=== PATIENT | male | born 1960 | race Caucasian/White ===

== ENCOUNTER 2020-03-04 14:57 | Outpatient (REF) | payer BC, SELFPAY | END 2020-03-04 14:58 | disposition home or self-care (01) | LOC: HO.LNP 14:57 | PROVIDERS: Visit Provider Internal Medicine | DX: R68.83 Chills (without fever) (principal); R23.2 Flushing; R07.89 Other chest pain; Z20.828 Contact with and (suspected) exposure to other viral communicable diseases | CPT/HCPCS: 87635 ==

== ENCOUNTER 2020-11-13 06:02 | Outpatient (REF) | payer BC, SELFPAY ==
[2020-11-13 06:50] LABS: MANUAL DIFF FLAG NO
[2020-11-13 07:04] LABS: Basophils Percent Auto 0.6 % (0-2); Eosinophils Absolute Auto 0.1 X10*3/uL (0.0-0.4); Eosinophils Percent Auto 2.2 % (0-4); Hematocrit 44.9 % (42-52); Hemoglobin 15.5 g/dl (14.0-18.0); Imm Gran Abs Auto 0.02 X10*3/uL (0.00-0.03); Imm Gran Pct Auto 0.3 % (0.0-0.4); Lymphocytes Absolute Auto 1.8 X10*3/uL (1.2-4.9); Lymphocytes Percent Auto 27.8 % (20-40); Mean Corpuscular HGB Conc 34.5 g/dl (31.0-36.0); Mean Corpuscular Hemoglobin 30.4 pg (27.0-33.0); Mean Platelet Volume 10.5 fL (9.4-12.4); Monocytes Absolute Auto 0.6 X10*3/uL (0.1-1.2); Monocytes Percent Auto 8.6 % (2-11); Neutrophils Absolute Auto 3.9 X10*3/uL (2.0-8.3); Neutrophils Percent Auto 60.5 % (45-73); Platelet Count 255 X10*3/uL (160-400); Red Cell Distribution Width 12.8 % (11.0-16.0); White Blood Count 6.4 X10*3/uL (4.8-10.8)
[2020-11-13 07:12] LABS: Alanine Aminotransferase 57 U/L (0-40); Albumin Level 4.3 g/dL (3.5-5.0); Alkaline Phosphatase 74 U/L (39-117); Anion Gap 13 (12-20); Aspartate Amino Transferase 30 U/L (5-37); Blood Urea Nitrogen 21 mg/dL (9-16); Calcium 9.4 mg/dL (8.4-10.2); Carbon Dioxide 25 mmol/L (22-29); Chloride 107 mmol/L (96-108); Cholesterol 150 mg/dL; Estimated Glomerular Filt Rate > 60; Glucose Fasting 85 mg/dL (60-99); HDL Cholesterol 43 mg/dL; LDL Cholesterol Calculated 96 mg/dl; Potassium 4.6 mmol/L (3.3-5.1); Sodium 140 mmol/L (135-145); Total Protein 6.8 g/dL (6.5-8.0); Triglycerides 57 mg/dL
[2020-11-13 07:34] LABS: Prostate Specific Antigen 1.75 ng/mL (<0.05-4.0)
[2020-11-13 08:56] LABS: Glucose Urine UA NEG (NEG); Leukocyte Esterase Urine NEG (NEG); Nitrite Urine NEG (NEG); Urine Blood NEG (NEG); Urine Ketones NEG (NEG); Urine Protein NEG (NEG-TRACE)
[2020-11-13 09:07] LABS: Appearance Urine CLEAR; Color Urine YELLOW
== END 2020-11-13 06:03 | disposition home or self-care (01) ==
LOC: HO.LAB 06:02
PROVIDERS: PCP Internal Medicine; Visit Provider Internal Medicine
DX: Z00.00 Encounter for general adult medical examination without abnormal findings (principal); Z12.5 Encounter for screening for malignant neoplasm of prostate
CPT/HCPCS: 36415; 80053; 80061; 81003; 84153; 85025

== ENCOUNTER → 2020-12-17 10:16 | Outpatient (BNVA) | payer BC, SELFPAY | PROVIDERS: PCP Internal Medicine; Visit Provider Orthopaedic Surgery ==

== ENCOUNTER 2021-07-14 05:57 | Outpatient (REF) | payer BC, SELFPAY ==
[2021-07-14 07:27] LABS: Appearance Urine CLEAR; Color Urine YELLOW; Glucose Urine UA NEG (NEG); Leukocyte Esterase Urine NEG (NEG); Nitrite Urine NEG (NEG); Specific Gravity - Urine 1.025 (1.005-1.025); Urine Blood NEG (NEG); Urine Ketones NEG (NEG); Urine Protein NEG (NEG-TRACE)
[2021-07-14 07:58] LABS: Anion Gap 12 (12-20); Blood Urea Nitrogen 17 mg/dL (9-16); Calcium 9.4 mg/dL (8.4-10.2); Carbon Dioxide 27 mmol/L (22-29); Chloride 107 mmol/L (96-108); Estimated Glomerular Filt Rate > 60; Glucose Random 86 mg/dL (60-115); Potassium 4.5 mmol/L (3.3-5.1); Sodium 141 mmol/L (135-145)
== END 2021-07-14 05:58 | disposition home or self-care (01) ==
LOC: HO.LAB 05:57
PROVIDERS: PCP Internal Medicine; Visit Provider Internal Medicine
DX: I10 Essential (primary) hypertension (principal); Z87.442 Personal history of urinary calculi
CPT/HCPCS: 36415; 80048; 81003

== ENCOUNTER 2021-07-30 14:06 | Outpatient (REF) | payer BC, SELFPAY ==
--- NOTE | ~2021-07-30 | US_ITS ---
EXAMINATION: US RETROPERITONEAL COMPLETE (RENAL) CLINICAL INFORMATION: Left flank pain, history of kidney stone. COMPARISON: Ultrasound abdomen complete 11/27/2018. US retroperitoneal limited (renal only) 12/22/2017. CT abdomen and pelvis without contrast 05/08/2016. TECHNIQUE: Real-time imaging of the kidneys and bladder. FINDINGS: RIGHT KIDNEY: 11.9 x 6.38 x 5.86 cm (SAG x AP x TRV). The kidney is normal in size, contour, and echogenicity. Renal cortical thickness is normal. No focal parenchymal lesions or hydronephrosis. Multiple nonobstructing calculi are noted largest measuring up to 4 mm in the interpolar region. LEFT KIDNEY: 12.4 x 5.8 x 6.14 cm (SAG x AP x TRV). The kidney is normal in size, contour, and echogenicity. Renal cortical thickness is normal. No renal calculi or hydronephrosis. Simple appearing cyst in the left renal interpolar region measuring 1.3 cm, which does not require follow-up. Additional cyst noted in the interpolar region measuring up to 1.0 cm which is septated. Additional cyst noted in the lower pole measuring up to 1.5 cm, exophytic, simple appearing, not requiring follow-up. Nonobstructive calculus in the left renal interpolar region measuring 3 mm. BLADDER: Well distended and normal. Bilateral ureteral jets are demonstrated. Prevoid bladder volume is 407 mL. Postvoid bladder volume is 159 mL. PROSTATE: Prostate measures 4.4 x 4.1 x 5.2 cm, volume 49.4 mL. US/US retroperitoneal comp IMPRESSION: 1. Bilateral nephrolithiasis without hydronephrosis. 2. Multiple cysts are noted in the left kidney the majority of which are simple appearing and do not require follow-up with a single appearing cyst demonstrating septation measuring up to 1.0 cm in the interpolar region. 3. Postvoid bladder volume of 159 mL with visualization of the bilateral ureteral jets. 4. Enlarged prostate measuring up to 5.2 cm with a volume of 49.4 mL.
== END 2021-07-30 14:07 | disposition home or self-care (01) ==
LOC: HO.HMGCX 14:06
PROVIDERS: PCP Internal Medicine; Visit Provider Internal Medicine
DX: R10.9 Unspecified abdominal pain (principal); N20.0 Calculus of kidney; N28.1 Cyst of kidney, acquired; Z87.442 Personal history of urinary calculi
CPT/HCPCS: 76770

== ENCOUNTER 2022-09-06 06:00 | Outpatient (REF) | payer BC, SELFPAY ==
[2022-09-06 08:12] LABS: Alanine Aminotransferase 52 U/L (0-40); Albumin Level 4.2 g/dL (3.5-5.0); Alkaline Phosphatase 54 U/L (39-117); Anion Gap 11 (12-20); Aspartate Amino Transferase 25 U/L (5-37); Bilirubin Total 0.8 mg/dL (0.0-1.0); Blood Urea Nitrogen 16 mg/dL (9-16); Calcium 9.2 mg/dL (8.4-10.2); Carbon Dioxide 27 mmol/L (22-29); Chloride 109 mmol/L (96-108); Estimated Glomerular Filt Rate > 60; Glucose Fasting 89 mg/dL (60-99); Potassium 4.4 mmol/L (3.3-5.1); Sodium 143 mmol/L (135-145); Total Protein 6.5 g/dL (6.5-8.0)
[2022-09-06 08:14] LABS: Cholesterol 166 mg/dL; HDL Cholesterol 45 mg/dL; LDL Cholesterol Calculated 109 mg/dl; Triglycerides 64 mg/dL
[2022-09-06 08:31] LABS: Prostate Specific Antigen 2.29 ng/mL (<0.05-4.0)
== END 2022-09-06 06:01 | disposition home or self-care (01) ==
LOC: HO.LAB 06:00
PROVIDERS: PCP Internal Medicine; Visit Provider Internal Medicine
DX: Z00.00 Encounter for general adult medical examination without abnormal findings (principal); Z12.5 Encounter for screening for malignant neoplasm of prostate; E66.09 Other obesity due to excess calories; I10 Essential (primary) hypertension; G47.33 Obstructive sleep apnea (adult) (pediatric)
CPT/HCPCS: 36415; 80053; 80061; 84153

== ENCOUNTER 2023-03-03 07:00 | Outpatient (RCR) | payer BC, MEDICARE, SELFPAY | END 2023-04-06 15:07 | disposition home or self-care (01) | LOC: HO.PT 07:00 | PROVIDERS: PCP Internal Medicine; Visit Provider Orthopaedic Surgery | DX: Z96.651 Presence of right artificial knee joint (principal) | CPT/HCPCS: 97035; 97110; 97140; 97161; 97530 ==

== ENCOUNTER 2023-08-30 05:58 | Outpatient (REF) | payer MEDICARE, SELFPAY ==
[2023-08-30 06:14] LABS: MANUAL DIFF FLAG NO
[2023-08-30 07:13] LABS: Urine Cytology See Pathology rpt
[2023-08-30 07:17] LABS: Basophils Absolute Auto 0.1 X10*3/uL (0.0-0.2); Basophils Percent Auto 0.8 % (0-2); Eosinophils Absolute Auto 0.1 X10*3/uL (0.0-0.4); Eosinophils Percent Auto 1.9 % (0-4); Hematocrit 46.7 % (42.0-52.0); Hemoglobin 16.4 g/dl (14.0-18.0); Imm Gran Abs Auto 0.02 X10*3/uL (0.00-0.03); Imm Gran Pct Auto 0.3 % (0.0-0.4); Lymphocytes Absolute Auto 1.6 X10*3/uL (1.2-4.9); Lymphocytes Percent Auto 24.5 % (20-40); Mean Corpuscular HGB Conc 35.1 g/dl (31.0-36.0); Mean Corpuscular Hemoglobin 30.3 pg (27.0-33.0); Mean Corpuscular Volume 86.3 fL (80.0-98.0); Mean Platelet Volume 10.3 fL (9.4-12.4); Monocytes Absolute Auto 0.6 X10*3/uL (0.1-1.2); Monocytes Percent Auto 9.5 % (2-11); Neutrophils Absolute Auto 4.1 x10*3/uL (2.0-8.3); Platelet Count 247 X10*3/uL (160-400); Red Blood Count 5.41 X10*6/uL (4.60-5.80); Red Cell Distribution Width 13.1 % (11.0-16.0); White Blood Count 6.4 X10*3/uL (4.8-10.8)
[2023-08-30 07:19] LABS: Appearance Urine Clear; Color Urine Dark Yellow; Glucose Urine UA Negative (Negative); Leukocyte Esterase Urine Trace (Negative); Nitrite Urine Negative (Negative); Specific Gravity - Urine 1.015 (1.005-1.025); UMIC TRIGGER UA YES; Urine Blood Negative (Negative); Urine Ketones Negative (Negative); Urine Protein Negative (Neg-Trace)
[2023-08-30 07:45] LABS: Bacteria Urine None Seen (None Seen); RBC Urine 0-2 /HPF (0-2); Squamous Epithelial Cell Urine 0-2 /HPF (0-2); WBC Urine 0-5 /HPF (0-5)
[2023-08-30 07:57] LABS: Alanine Aminotransferase 48 U/L (0-40); Albumin Level 4.2 g/dL (3.5-5.0); Alkaline Phosphatase 63 U/L (39-117); Anion Gap 12 (12-20); Aspartate Amino Transferase 28 U/L (5-37); Bilirubin Total 0.8 mg/dL (0.0-1.0); Blood Urea Nitrogen 13 mg/dL (9-16); Calcium 9.4 mg/dL (8.4-10.2); Carbon Dioxide 27 mmol/L (22-29); Chloride 110 mmol/L (96-108); Cholesterol 152 mg/dL (<200); Estimated Glomerular Filt Rate > 60; Glucose Fasting 91 mg/dL (60-99); HDL Cholesterol 44 mg/dL (>40); LDL Cholesterol Calculated 92 mg/dL (<100); Potassium 3.8 mmol/L (3.3-5.1); Sodium 145 mmol/L (135-145); Total Protein 7.2 g/dL (6.5-8.0); Triglycerides 81 mg/dL (<150)
[2023-08-30 07:59] LABS: Prostate Specific Antigen Scr 3.24 ng/mL (<0.05-4.0)
[2023-08-30 08:13] LABS: Thyroid Stimulating Hormone 2.47 uIU/mL (0.32-4.0)
== END 2023-08-30 05:59 | disposition home or self-care (01) ==
LOC: HO.LAB 05:58
PROVIDERS: PCP Internal Medicine; Visit Provider Internal Medicine
DX: I10 Essential (primary) hypertension (principal); N40.0 Benign prostatic hyperplasia without lower urinary tract symptoms; G47.33 Obstructive sleep apnea (adult) (pediatric); R63.5 Abnormal weight gain; Z12.5 Encounter for screening for malignant neoplasm of prostate
CPT/HCPCS: 36415; 80053; 80061; 81001; 84153; 84443; 85025; 88112

== ENCOUNTER → 2024-07-24 07:46 | Outpatient (REF) | payer MEDICARE, SELFPAY ==
--- OUTSIDE RECORDS SUMMARY | 2024-07-24 07:48 | XMS_ITS | Patient Health Record ---
Author Organization [facility] Address [address] [place] [address] Care Team Providers Care Washer Assembler Name Role Phone Jonathan Crandall MD Primary Care Provider Unavaila Mario Culver Jr REASON FOR REFERRAL No Information MEDICATIONS Medication SIG (Take, Route, Frequency, Duration) Notes Start Date End Date Status Lisinopril 20 MG 1 tablet Orally Once a day for 30 day(s) Active Ibuprofen 200 MG 1 tablet with food o r milk as needed Orally prn Active Allopurinol 100 MG TAKE ONE TABLET BY M OUTH EVERY DAY Oral for 30 Active amLODIPine Besylate 5 MG 1 tablet Orally Once a day for 30 day(s) Active IMMUNIZATIONS Vaccine Route Administration Date Status Comme nts Influenza Unknown 01/28/2018 Administered SOCIAL HISTORY Tobacco Use: Social History Observation Description Date Details (start date - stop date) Never Smoker NA - NA Sex Assigned At : Social History Observation Description Sex Assigned At Unknown Tobacco Use/Smoking Question Answer Notes Patient is a nonsmoker Alcohol Screen Question Answer Notes Did you have a drink containing alcohol in the p ast year? No Points 0 Interpretation Negative PROBLEMS Problem Type ICD Code Onset Dates Problem Status W/U Status Risk SNOMED Code Notes Problem Colon cancer screening (Z12.11) Active confirmed 739357614 Problem Encounter for other preprocedural examination (Z01.818) Active confirmed 812337511 PLAN OF TREATMENT Future Test Test Name Order Date COLONOSCOPY 10/19/2018 Next Appt Details Provider Name:Mario toscano Jr, 09/10/2024 11:20:00 AM, [address], [address], [place], [address], Insurance Providers Payer Name Payer Address Payer Phone Subscriber Number Group Number Insured Name Patient Relationship to Insured Coverage Start Date Coverage End Date [place] [address] [place] [address] [id number] MASSIEL RENEE Self - patient is the insured [facility] [address] [place] [address] [id number] LOU JANG MASSIEL Self - patient is the insured MEDICAL (GENERAL) HISTORY Medical History History ICD Code hx of kidney stone- Dr. Aguilera sleep apnea- cpap machine hypertension Surgical History Surgery Date(Month/Year) left knee surgery total replacement 2015 right knee arthritis/ meniscus repair ruptured disc in neck umbilical hernia repair tonsillectomy age 10
--- OUTSIDE RECORDS SUMMARY | 2024-07-24 07:49 | XMS_ITS ---
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 Role Phone Jonathan Crandall MD Primary Care Provider UnavailIsis Hoyos Unavailable [phone] David Mejía Unavailable [phone] Allergies No Known Allergies REASON FOR VISIT Painful nail(s) aggrevated by shoes and causing difficulty standing/walking., Foot pain, Ingrown nail(s), Ulcer(s) Medications Medication SIG (Take, Route, Frequency, Duration) Notes Start Date End Date Status hydroCHLOROthiazide 12.5 MG 1 tablet in the morning Orally Once a day for 30 day(s) Active amLODIPine Besylate 5 MG 1 tablet Orally Once a day for 30 day(s) Active Doxazosin Mesylate 2 MG 1 tablet Orally Once a day for 30 day(s) Active Losartan Potassium 100 MG 1 tablet Orall y Once a day for 30 day(s) Active Ciclopirox Olamine 0.77 % APPLY TOPICALL Y TO AFFECTED AREAS ON FEET TWO TIMES A DAY for 30 Active Flomax 0.4 MG 1 capsule Orally Onc e a day for 30 day(s) Active Social History Tobacco Use: Social History Observation Description Date Details (start date - stop date) Never Smoker NA - NA Tobacco Use/Smoking Question Answer Notes Are you a: nonsmoker Additional Findings: Tobacco Non-User Current no n-smoker Alcohol Screen Question Answer Notes Did you have a drink contain ing alcohol in the past year? Yes How often did you have a dri nk containing alcohol in the past year? Monthly or less (1 point) How often did you have 6 or more drinks on one occasion in the past year? Less than monthly (1 point) Points 2 Interpretation Negative Tobacco use other than smoking: Question Answer Notes Are you an other tobacco user? No Problems Problem Type SNOMED Code ICD Code Onset Dates Problem Status W/U Status Risk Notes Problem Non-pressure chronic ulcer of other part of left foot limited to breakdown of skin (L97.521) Active confirmed Vital Signs Height 6 ft 1 in in 09/08/2023 Weight 270 lbs 09/08/2023 BMI 35.62 kg/m2 09/08/2023 Blood pressure systolic 128 mm Hg 09/08/19 24 Blood pressure diastolic 90 mm Hg 024 Encounters Encounter Location Date Provider Diagnosis [facility] [place] [address] [place] [address] 09/08/2023 David Mejía Tinea unguium B35.1 ; Pain in right toe(s) M79.674 ; Pain in left toe(s) M79.675 ; Ingrowing nail L60.0 ; Metatarsalgia, right foot M77.41 ; Neuralgia and neuritis, unspecified M79.2 and Non-pressure chronic ulcer of other part of left foot limited to breakdown of skin L97.521 Assessments Encounter Date Diagnosis (ICD Code) Assessment Notes Treatment Notes Treatment Clinical Notes Section Notes 09/08/2023 Tinea unguium (ICD-10 - B35.1) 09/08/2023 Pain in right toe(s) (ICD-10 - M79.674) 09/08/2023 Pain in left toe(s) (ICD-10 - M79.675) 09/08/2023 Ingrowing nail (ICD-10 - L60.0) 09/08/2023 Metatarsalgia, right foot (ICD-10 - M77.41) 09/08/2023 Neuralgia and neuritis, unspecified (ICD-10 - M79.2) 09/08/2023 Non-pressure chronic ulcer of other part of left foot limited to breakdown of skin (ICD-10 - L97.521) Plan Of Treatment Next Appt Details Follow Up: prn, Reason: Procedure Notes * Category Sub-Category Detail Notes Debride skin< 25 sq cm Open wound Open woun d selective debridement of fibrin, devitilized epidermis and/or dermis, exudate, using sterile sharp dissection, without use of anesthesia, with/without topical applications, wound assessment and instructions for ongoing care, Wound Care, The patient was instructed on importance of proper wound care consisting of pressure reduction, maintainance of moist wound environment, and regular debridement of devitilized tissue , The patient is to cleanse the wound with warm soapy water/peroxide/saline or betadine BID based on product availability , The patient is to apply Antibiotic Oint. to the wound and cover with a DSD , The patient was instructed to change dressings according to orders or PRN saturation, leaks, The patient was instructed to monitor and report any signs or symptoms of infection or any untoward reactions (69330) Progress Notes * Andrea OLIVEIRAOB:[birth year] (63 yo M)Acc No.[id number]:09/08/2023 Progress Notes Patient:?Tani Oliveira Provider:?David Mejía DPM :1960???Age:63 Y???Sex:Male Brian e:09/08/2023 Address:[address] [place] [address], [facility], [id number] Pcp:Jonathan Crandall MD Subjective: * Chief Complaints: * ??? Painful nail(s) aggrevat ed by shoes and causing difficulty standing/walking.Foot painIngrown nail(s)Ulcer(s) * HPI: ???Painful Nails:?Pt States Last PCP Visit:?Date:?09/02/2023 ???Foot Pain:?Nature:?pressure, numbness.?Location?Bottom, Forefoot, Right .?Duration:?several years.?Onset/Cause:?unknown, denies trauma.?Aggrevated:?any pressure, standing, walking, barefoot walking.?Treatments:?gdfier shoes help.?Quality/Severity?moderate.?Skin problems:?Nature:?tender.?Location:?Left , 2nd, Toe(s).?Duration:?a day.?Onset/Cause:?nail tore off.?Ingrown toenail:?Nature:?tenderness.?Location:?Great toe, Left foot.?Treatments:?previous hx of two pna that have failed in past.? * ROS:?General/Constitutional:?Nausea?denies, denies.?Vomiting?denies, denies.?Hunger Thirst?denies, denies.?Loss appetite?denies, denies.?Chills?denies, denies.?Fatigue?denies, denies.?Fever?denies, denies.?Night Sweats denies, denies.?Unexplained weight loss?denies, denies.?Unexplained weight gain?denies.?Ophthalmologic:?Blurred vision?denies.?Red eye?denies.?HEENTM:?Dentures?denies, denies.?Dizziness?denies, denies.?Glasses/contacts?admits, denies.?Retinopathy?denies, denies.?Blurred/double vision?denies, denies.?TMJ?denies, denies.?Discharge/drainage?denies, denies.?Implants?denies, denies.?Sore throat?denies.?Dental implants?denies.?Hard of hearing ?admits, denies.?Difficulty chewing/swallowing/speaking?denies, denies.?Nose bleeds?denies, denies.?Sore mouth?denies, denies.?Swollen glands?denies.?Respiratory:?On Oxygen?denies, denies.?Pneumonia/pleurisy?denies, denies.?Bronchitis?denies, denies.?Emphysema?denies, denies.?Coughing?denies, denies.?Cough blood?denies, denies.?Shortness of breath?denies, denies.?Wheezing?denies, denies.?Cardiovascular:?Pacemaker?denies, denies.?MVP?denies, denies.?WPW?denies, denies.?CHF?denies, denies.?Heart attack?denies, denies.?Septal defect?denies, denies.?Rapid beat?denies, denies.?Chest pain ?denies, denies.?Atrial Fib.?denies, denies.?Murmur/Palpitations?denies, denies.?Gastrointestinal:?Hemorrhoids?admits, denies.?Stomach/Abdominal pain?denies, denies.?Dark blood stool?denies, denies.?Irritable bowel ?denies, denies.?Constipation?denies, denies.?Diarrhea?denies, denies.?Vomiting?denies.?Hematology:?Swelling?denies, denies.?Clots?denies.?Varicose Veins?denies.?Bruising?denies, denies.?Bleeding problem?denies, denies.?Genitourinary:?Blood urine?denies, denies.?Frequent/Painfu/urination/bladder control?denies, denies.?Kidney stones?admits, denies.?Infection (UTI)?denies, denies.?Nephropathy?denies, denies.?sex trans dis (STD)?denies.?Prostate?denies.?Musculoskeletal:?Hammertoes?denies, denies.?Bunions?denies, denies.?Scoliosis/kyphosis?denies.?Back Pain?admits.?Muscle Cramps/ Resting?denies.?Muscle cramps / walking?denies, denies.?Generalized aches and pains?admits, denies.?Weakness?denies, denies.?Integ.:?Rodriguez?denies, denies.?Scars?denies, denies.?Corns/calluses?denies, denies.?Ingrown nails?denies, denies.?Painful nails?denies, denies.?Open Sores?denies.?Rashes?denies, denies.?Neurologic:?Difficulty sleeping?denies, denies.?Bipolar?denies.?Brain disorder?denies, denies.?Numbness?denies.?Balance trouble?denies, denies.?Confusion?denies, denies.?Fainting/blackouts?denies, denies.?Headache?denies.?Tingling?denies.?Tremors?denies, denies.? * Medical History:? * Surgical History:?left knee replacement 2016umbilical hernia 2000herniated disk in neck 2002tonsillectomy achilles tendon surgery 1985wisdom tooth extraction 2019 * Hospitalization/Major Diagno stic Procedure:?Denies Past Hospitalization * Family History:?Mother: dece ased, foot problems, diagnosed with Family history of arthritis, Unspecified essential hypertension, Other specified conditions influencing health status.?Father: , cancer, diagnosed with Other malignant neoplasm of unspecified site.?Siblings: brothers- cancer, diagnosed with Other malignant neoplasm of unspecified site.? * Social History:?Tobacco Use:?Tobacco Use/Smoking?Are you a:?nonsmoker ?Additional Findings: Tobacco Non-User?Current non-smoker ?Tobacco use other than smoking?Are you an other tobacco user??No ???Drugs/Alcohol:?Drugs?Have you used drugs other than those for medical reasons in the past 12 months??No ?Alcohol Screen?Did you have a drink containing alcohol in the past year??Yes ?How often did you have a drink containing alcohol in the past year??Monthly or less (1 point) ?How often did you have 6 or more drinks on one occasion in the past year??Less than monthly (1 point) ?Points?2 ?Interpretation?Negative ???Miscellaneous:?Caffeine: yes, frequency: ice coffee a few times a week, 2 bottles of soda a week. ?Children: yes, 2. ?Exercise: yes, walking. ?Marital status: . 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 * Medications:?TakingFlomax 0. 4 MG Capsule 1 capsule Orally Once a dayhydroCHLOROthiazide 12.5 MG Tablet 1 tablet in the morning Orally Once a dayamLODIPine Besylate 5 MG Tablet 1 tablet Orally Once a dayDoxazosin Mesylate 2 MG Tablet 1 tablet Orally Once a dayLosartan Potassium 100 MG Tablet 1 tablet Orally Once a dayCiclopirox Olamine 0.77 % Cream APPLY TOPICALLY TO AFFECTED AREAS ON FEET TWO TIMES A DAY Medication List reviewed and reconciled with the patientTaking Flomax 0.4 MG Capsule 1 capsule Orally Once a dayTaking hydroCHLOROthiazide 12.5 MG Tablet 1 tablet in the morning Orally Once a dayTaking amLODIPine Besylate 5 MG Tablet 1 tablet Orally Once a dayTaking Doxazosin Mesylate 2 MG Tablet 1 tablet Orally Once a dayTaking Losartan Potassium 100 MG Tablet 1 tablet Orally Once a dayTaking Ciclopirox Olamine 0.77 % Cream APPLY TOPICALLY TO AFFECTED AREAS ON FEET TWO TIMES A DAY Medication List reviewed and reconciled with the patient * Allergies:?N.K.D.A.yes[Aller gies Verified] Objective: * Vitals:?Ht: 6 ft 1 in, Wt:27 0, BMI:35.62, Shoe size:12, BP:128/90 mm Hg. * Examination: ???Nails: ?NAILS are:?elongated,overgrown,dystrophic,greater than 3mm thick,discolored and friable with crumbly malodorous subungual debris, with pain on palpation, TA, T1, T2, T3, T5, T6.?General Examination: ?GENERAL APPEARANCE:?pleasant, alert, well nourished, well developed, well hydrated, with good attention to hygene/body habitus, and in no acute distress.?ORIENTED:?person,place, and time.?Neurological: ?SENSORY:?Neurological exam is normal, pain sensation normal, vibration sensation intact, pinprick sensation is normal in the lower extremities, denies, tingling, burning, anesthesia, paresthesia, hyperesthesia, B/L.?TINEL'S COMPRESSION:?Negative tarsal tunnel, joseph pedis, and medial calcaneal nerves B/L.?BABINSKI REFLEX:?absent.?Neuroma Pain: ?PALPATION:?No interspace pain noted on palpation.?Vascular: ?DP PULSES:?2/4, B/L.?PT PULSES:?2/4, B/L.?CAPILLARY FILL TIME:?3 secs. per digit, B/L.?SKIN TEMPERTURE GRADIENT OF THE LOWER EXTERMITIES:?warm to cool, proximal to distal, B/L.?HAIR GROWTH/TEXTURE/ELASTICITY/TURGOR:?normal, B/L.?PIGMENTATION:?normal, B/L.?EDEMA:?no edema.?TELANGECTASIA:?absent.?VARICOSITIES:?absent.?Dermatologic: ?SKIN FINDINGS:?Skin exam reveals normal texture, elasticity, and tugor. There are no masses. The interspaces are clear, B/L .?ULCER:? LOCATION--t1, SIZE, 5mm X 5mm X 2mm, BASE, fibrogranular, RIM, hyperkeratotic, UNDERMINING, absent, TRACKING, Full thickness breakdown of skin,NECROTIC TISSUE, loosely-adherent,yellow slough DRAINAGE, serous, mild, MALODOR, absent, CALOR, absent, ERYTHEMA, absent, PAIN ON PALPATION, present-mild.?Orthopedic: ?MUSCLE STRENGTH:?5/5 all groups in a symmetrical fashion , B/L.?GAIT ABNORMALITY:?pronated, abducted, B/L.?Ingrown Nail: ?INSPECTION:? Reveals nail incurvation, pain on palpation, groove hypertrophy, groove ischemia, Bilateral nail borders, TA.? Assessment: * Assessment: 1.?Tinea unguium - B35.1 (Pr imary)?2.?Pain in right toe(s) - M79.674?3.?Pain in left toe(s) - M79.675?4.?Ingrowing nail - L60.0?5.?Metatarsalgia, right foot - M77.41?6.?Neuralgia and neuritis, unspecified - M79.2?7.?Non-pressure chronic ulcer of other part of left foot limited to breakdown of skin - L97.521? Plan: * Treatment: * Procedures:?Debride skin< 25 sq cm:?Open wound?Open wound selective debridement of fibrin, devitilized epidermis and/or dermis, exudate, using sterile sharp dissection, without use of anesthesia, with/without topical applications, wound assessment and instructions for ongoing care, Wound Care, The patient was instructed on importance of proper wound care consisting of pressure reduction, maintainance of moist wound environment, and regular debridement of devitilized tissue , The patient is to cleanse the wound with warm soapy water/peroxide/saline or betadine BID based on product availability , The patient is to apply Antibiotic Oint. to the wound and cover with a DSD , The patient was instructed to change dressings according to orders or PRN saturation, leaks, The patient was instructed to monitor and report any signs or symptoms of infection or any untoward reactions (61288).? * Procedure Codes:?93890 ACTIV E WOUND CARE/20 CM OR < * Preventive Medicine:? ??Counseling:?Discussion:?-13: Office or other outpatient visit for the evaluation and management of an established patient, which required a medically appropriate history and/or examination and LOW level of DECISION MAKING for: 1 STABLE ACUTE UNCOMPLICATED PROBLEM, 2 OR MORE MINOR PROBLEMS, OR 1 STABLE CHRONIC PROBLEM, THAT POSE(S) A LOW RISK FOR MORBIDITY/MORTALITY. The visit on the day of the encounter encompassed interpreting the data and educating the patient as to the nature of their condition, treatment options available according to their individual PMH, meds, allergies, and overall health/living conditions, as well as any potential risks or complications that may occur from a failure to adhere to, and participate in, the recommended course of therapy. The discussion included a complete verbal, and/or written explanation of the examination results, any x-rays taken, the proposed diagnosis, and outline of the treatment plan. A schedule for future care needs was also explained. The patient verbalized an understanding of the instructions at this time and agreed to be an active participant in their treatment. If the patient should think of any questions or concerns after the visit, I have encouraged the patient to call the office--given hx of failed pna ta in past and pt aversion to local anesthesia--I recommend for pt to consider total suppan sharp nail excision under mac anesthesia with Dr. Santos in future.? * Follow Up:?prn * Images: * Sign off status: Completed true * Provider:?David Mejía DPM Date:? 024 Generated for Freddy huffman/Tone/Bianca on:?07/24/2024 07:48 AM EST History and Physical Notes * HPI (History of Present Illness) Category Sub-Category Detail Notes Category Not es Ingrown toenail Nature: tenderness Location: Great toe, Left foot Treatments: previous hx of two p na that have failed in past Painful Nails Pt States Last PCP Visit: Date:: 09/02/2023 Skin problems Nature: tender Location: Left , 2nd, Toe(s) Duration: a day Onset/Cause: nail tore off Foot Pain Aggrevated: any pressure, standing, walk ing, barefoot walking Onset/Cause: unknown, denies stephanie ma Duration: several years Nature: pressure, numbness Treatments: gdfier shoes help Quality/Severity moderate Location Bottom, Forefoot, Ri ght Examination Category Sub-Category Detail Notes Category Not es Ingrown Nail INSPECTION: Reveals nail inc urvation, pain on palpation, groove hypertrophy, groove ischemia, Bilateral nail borders, TA Neuroma Pain PALPATION: No interspace pain noted on palpation Neurological SENSORY: Neurological exa m is normal, pain sensation normal, vibration sensation intact, pinprick sensation is normal in the lower extremities, denies, tingling, burning, anesthesia, paresthesia, hyperesthesia, B/L BABINSKI REFLEX: absent TINEL'S COMPRESSION: Negative tarsal sergei tao, joseph pedis, and medial calcaneal nerves B/L Dermatologic SKIN FINDINGS: Skin exam reveal s normal texture, elasticity, and tugor. There are no masses. The interspaces are clear, B/L ULCER: LOCATION--t1, SIZE, 5mm X 5mm X 2mm, BASE, fibrogranular, RIM, hyperkeratotic, UNDERMINING, absent, TRACKING, Full thickness breakdown of skin,NECROTIC TISSUE, loosely-adherent,yellow slough DRAINAGE, serous, mild, MALODOR, absent, CALOR, absent, ERYTHEMA, absent, PAIN ON PALPATION, present-mild Orthopedic GAIT ABNORMALITY: pronated, abducted, B/L MUSCLE STRENGTH: 5/5 all groups in a symmetrical fashion , B/L General Examination GENERAL APPEARANCE: pleasant , alert, well nourished, well developed, well hydrated, with good attention to hygene/body habitus, and in no acute distress ORIENTED: person,place, and ti me Vascular DP PULSES (B): 2/4, B/L PT PULSES (B): 2/4, B/L CAPILLARY FILL TIME: 3 secs. per digit, B/L TEMPERTURE GRADIENT (C): warm to cool, p roximal to distal, B/L TROPHIC CONDITION-TEXTURE/ELASTICITY/TURGOR/HAIR GROWTH (B): normal, B/L EDEMA (C): no edema TELANGECTASIA: absent VARICOSITIES: absent PIGMENTATION: normal, B/L Nails NAILS are: elongated,overgr own,dystrophic,greater than 3mm thick,discolored and friable with crumbly malodorous subungual debris, with pain on palpation, TA, T1, T2, T3, T5, T6
--- OUTSIDE RECORDS SUMMARY | 2024-07-24 07:49 | XMS_ITS | Patient Health Record ---
Author Organization [facility] Address [address] [facility] [place] [address] Care Team Providers Care Lpc Name Role Phone Jonathan Crandall MD Primary Care Provider Unavaila johnie Santos Isis Unavailable [phone] Mejía David Unavailable [phone] Allergies No Known Allergies Reason For Referral No Information Medications Medication SIG (Take, Route, Frequency, Duration) [...] e a day for 30 day(s) Active Immunizations Vaccine Route Administration Date Status Comme nts COVID-19 Pfizer BioNTech Vaccine Unknown 08/14/2020 Administered Second Dose: 09/04/2020 Social History Tobacco Use: Social History Observation [...] of skin (L97.521) Active confirmed Vital Signs Blood pressure diastolic 90 mm Hg 09/08/2023 Height 6 ft 1 in in 09/08/2023 Blood pressure systolic 128 mm Hg 09/08/2023 Weight 270 lbs 09/08/2023 BMI 35.62 kg/m2 09/08/2023 Encounters Encounter Location Date Provider Diagnosis [facility] [address] [address] 08/24/2023 David Mejía Tinea unguium B35.1 ; Pain in right toe(s) M79.674 ; Pain in left toe(s) M79.675 ; Ingrowing nail L60.0 ; Metatarsalgia, right foot M77.41 and Neuralgia and neuritis, unspecified M79.2 [facility] [address] [address] 09/08/2023 David Mejía Tinea unguium B35.1 ; [...] Treatment Notes Treatment Clinical Notes Section Notes 08/24/2023 Tinea unguium (ICD-10 - B35.1) 08/24/2023 Pain in right toe(s) (ICD-10 - M79.674) 09/08/2023 Tinea unguium (ICD-10 - B35.1) 09/08/2023 Pain in right toe(s) (ICD-10 - M79.674) 09/08/2023 Pain in left toe(s) (ICD-10 - M79.675) 08/24/2023 Pain in left toe(s) (ICD-10 - M79.675) 08/24/2023 Ingrowing nail (ICD-10 - L60.0) 09/08/2023 Ingrowing nail (ICD-10 - L60.0) 09/08/2023 Metatarsalgia, right foot (ICD-10 - M77.41) 08/24/2023 Metatarsalgia, right foot (ICD-10 - M77.41) 09/08/2023 Neuralgia and neuritis, unspecified (ICD-10 - M79.2) 08/24/2023 Neuralgia and neuritis, unspecified (ICD-10 - M79.2) 09/08/2023 Non-pressure chronic ulcer of other part of left foot limited to breakdown of skin (ICD-10 - L97.521) Plan Of Treatment Pending Test Test Name Order Date X ray : Foot, right 3V 08/24/2023 Insurance Providers Payer Name Payer Address Payer Phone Subscriber Number Group Number Insured Name Patient Relationship to Insured Coverage Start Date Coverage End Date [employer] 65 Medicare Preferred [address] [place] [address] [id number] Tani Hou Self - patient is the insured Medical (General) History Medical History History ICD Code Arthritis Back,Hip,and Knee pain Broken bones High blood pressure Measles Mumps Chicken pox Bone implants/screws Kidney stones Surgical History Surgery Date(Month/Year) left knee replacement 2015 umbilical hernia 2000 herniated disk in neck 2001 tonsillectomy achilles tendon surgery 1985 wisdom tooth extraction 2019
--- OUTSIDE RECORDS SUMMARY | 2024-07-24 07:49 | XMS_ITS ---
[facility] Organization [facility] Address [address] [address] Care Team Providers Care Wellness Coach Name Role Phone Jonathan Crandall MD Primary Care Provider Unavaila Isis Kelly Unavailable [phone] David Mejía Unavailable [phone] Allergies No Known Allergies REASON FOR VISIT Painful nail(s) aggrevated by shoes and causing difficulty standing/walking., Foot pain, Ingrown nail(s) Medications Medication SIG (Take, Route, Frequency, Duration) Notes Start Date End Date Status Ciclopirox Olamine 0.77 % APPLY TOPICALL Y TO AFFECTED AREAS ON FEET TWO TIMES A DAY for 30 Active Doxazosin Mesylate 2 MG 1 tablet Orally Once a day for 30 day(s) Active Losartan Potassium 100 MG 1 tablet Orall y Once a day for 30 day(s) Active amLODIPine Besylate 5 MG 1 tablet Orally Once a day for 30 day(s) Active Social History Tobacco Use: Social History Observation Description Date Details (start date - stop date) Never Smoker NA - NA Tobacco Use/Smoking Question Answer Notes Are you a: nonsmoker Alcohol Screen Question Answer Notes Did [...] Are you an other tobacco user? No Vital Signs Height 6 ft 1 in in 08/24/2023 Weight 252 lbs 08/24/2023 BMI 33.24 kg/m2 08/24/2023 Blood pressure systolic 140 mm Hg 08/24/19 Blood pressure diastolic 94 mm Hg 024 Encounters Encounter Location Date Provider Diagnosis [facility] [address] [place] [address] 08/24/2023 David Mejía Tinea unguium B35.1 ; Pain in right toe(s) M79.674 ; Pain in left toe(s) M79.675 ; Ingrowing nail L60.0 ; Metatarsalgia, right foot M77.41 and Neuralgia and neuritis, unspecified M79.2 Assessments Encounter Date Diagnosis (ICD Code) Assessment Notes Treatment Notes Treatment Clinical Notes Section Notes 08/24/2023 Tinea unguium (ICD-10 - B35.1) 08/24/2023 Pain in right toe(s) (ICD-10 - M79.674) 08/24/2023 Pain in left toe(s) (ICD-10 - M79.675) 08/24/2023 Ingrowing nail (ICD-10 - L60.0) 08/24/2023 Metatarsalgia, right foot (ICD-10 - M77.41) 08/24/2023 Neuralgia and neuritis, unspecified (ICD-10 - M79.2) Plan Of Treatment Pending Test Test Name Order Date X ray : Foot, right 3V 08/24/2023 Next Appt Details Follow Up: 2 Weeks, Reason: Procedure Notes * Category Sub-Category Detail Notes Nail Avulsion Procedure A fine sterile e levator was used to loosen the eponychium, nail bed, nail plate and groove. A sterile nail splitter was then used to longitudinally section the nail. This section was removed. No underlying bone was identified. Procedure was performed under. Bacitracin and sterile dressings applied, local wound care instructions were dispensed. Patient was informed of both conservative and future surgical procedures to prevent recurrence Anesthesia 3cc of 1 percent Lid ocaine/Epi 1:200,000 local anesthesic utilizing aseptic technique Location Total nail, TA Debride Nail 6-10 Nail debridement Nail debridem ent performed extensively to reduce/remove overall nail length and girth, subungual debris, and necrotic tissue, by manual and electrical means with use of a nail nipper and/or dremel, to more viable healthy nail plate or bed tissue 6-10. Silver nitrate used for any petechial bleeding as necessary. Patient chooses, no pharmaceutical tx (79239) Progress Notes * Andrea OLIVEIRAOB:[birth year] (63 yo M)Acc No.[id number]:08/24/2023 Progress Note Patient:?Tani Oliveira Provider:?David Mejía DPM :1960???Age:63 Y???Sex:Male Brian e:08/24/2023 Address:[address] [place] [address], [facility] [place] Pcp:Jonathan Crandall MD Subjective: * Chief Complaints: * ??? Painful nail(s) aggrevat ed by shoes and causing difficulty standing/walking.Foot painIngrown nail(s) * HPI: ???Painful Nails:?Pt States Last PCP Visit:?Date:?06/01/2023 ???Foot Pain:?Nature:?pressure, numbness.?Location?Bottom, Forefoot, Right .?Duration:?several years.?Onset/Cause:?unknown, denies trauma.?Course:?worse.?Aggrevated:?any pressure, standing, walking, barefoot walking.?Treatments:?gdfier shoes help.?Quality/Severity?moderate.? * ROS:?General/Constitutional:?Nausea?denies, denies.?Vomiting?denies, denies.?Hunger Thirst?denies, denies.?Loss appetite?denies, [...] disk in neck 2002tonsillectomy achilles tendon surgery 1986wisdom tooth extraction 2019 * Hospitalization/Major Diagno stic Procedure:?Denies Past Hospitalization * Family History:?Mother: dece ased, foot problems, diagnosed with Family history of arthritis, Unspecified essential hypertension, Other specified conditions influencing health status.?Father: , cancer, diagnosed with Other malignant neoplasm of unspecified site.?Siblings: brothers- cancer, diagnosed with Other malignant neoplasm of unspecified site.? * Social History:?Tobacco Use:?Tobacco Use/Smoking?Are you a:?nonsmoker ?Tobacco use other than smoking?Are you an [...] year??Less than monthly (1 point) ?Points?2 ?Interpretation?Negative ???Miscellaneous:?no Caffeine. ?Children: yes, 2. ?Exercise: yes, walking. ?Marital status: . 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 * Medications:?TakingamLODIPin e Besylate 5 MG Tablet 1 tablet Orally Once a dayDoxazosin Mesylate 2 MG Tablet 1 tablet Orally Once a dayLosartan Potassium 100 MG Tablet 1 tablet Orally Once a dayCiclopirox Olamine 0.77 % Cream APPLY TOPICALLY TO AFFECTED AREAS ON FEET TWO TIMES A DAY Medication List reviewed and reconciled with the patientTaking amLODIPine Besylate 5 MG Tablet 1 tablet [...] Objective: * Vitals:?Ht: 6 ft 1 in, Wt:25 2, BMI:33.24, Shoe size:12, BP:140/94 mm Hg. * Examination: ???Nails: ?NAILS are:?elongated,overgrown,dystrophic,greater [...] no masses. The interspaces are clear, B/L .?Orthopedic: ?MUSCLE STRENGTH:?5/5 all groups in a symmetrical fashion , B/L.?GAIT ABNORMALITY:?pronated, abducted, B/L.?X-Rays - IMAGING REPORT: ?Clinical Indication(s):? Evaluate Biomechanical Deformity.?Views:? 3 views of Foot, RIGHT.?Foot structure:? reveals excess pronation with, anterior break in cyme line.?Digits:? show flattening of the MTH with asymmetrical joint space narrowing, 2nd digit.?Ingrown Nail: ?INSPECTION:? Reveals nail incurvation, pain on palpation, groove hypertrophy, groove ischemia, Bilateral nail borders, TA.? Assessment: * Assessment: 1.?Tinea unguium - B35.1 (Pr imary)?2.?Pain in right toe(s) - M79.674?3.?Pain in left toe(s) - M79.675?4.?Ingrowing nail - L60.0?5.?Metatarsalgia, right foot - M77.41?6.?Neuralgia and neuritis, unspecified - M79.2? Plan: * Treatment: * Procedures:?Debride Nail 6-10:?Nail debridement?Nail debridement performed extensively to reduce/remove overall nail length and girth, subungual debris, and necrotic tissue, by manual and electrical means with use of a nail nipper and/or dremel, to more viable healthy nail plate or bed tissue 6-10. Silver nitrate used for any petechial bleeding as necessary. Patient chooses, no pharmaceutical tx (00064).?Nail Avulsion:?Location?Total nail, TA.?Anesthesia?3cc of 1 percent Lidocaine/Epi 1:200,000 local anesthesic utilizing aseptic technique.?Procedure?A fine sterile elevator was used to loosen the eponychium, nail bed, nail plate and groove. A sterile nail splitter was then used to longitudinally section the nail. This section was removed. No underlying bone was identified. Procedure was performed under. Bacitracin and sterile dressings applied, local wound care instructions were dispensed. Patient was informed of both conservative and future surgical procedures to prevent recurrence.? * Procedure Codes:?14231 DEBRI DE NAIL, 6 OR MORE, Modifiers: XS 40826 Avulsion Plate, [place]: [place] [address] X-RAY EXAM OF RIGHT FOOT 3V, Modifiers: 26 , RT * Preventive Medicine:? ??Counseling:?Discussion:?-14: Office or other outpatient visit for the evaluation and management of an established patient, which required a medically appropriate history and/or examination and MODERATE level of DECISION MAKING for: 1 OR MORE CHRONIC PROBLEM(S) THATS WORSENING, 2 STABLE CHRONIC PROBLEMS, A NEWLY DIAGNOSED PROBLEM WITH UNCERTAIN PROGNOSIS, AN ACUTE COMPLICATED INJURY WITH MULTIPLE TREATMENT OPTIONS, OR AN ACUTE PROBLEM WITH ACCOMPANYING SYSTEMIC SYMPTOMS, THAT POSE(S) A MODERATE RISK OF MORBIDITY. THIS CONDITION MAY ALSO INCLUDE RX DRUG MANAGEMENT, OR A DECISON FOR MINOR SURGERY. The visit on the day of the [...] have encouraged the patient to call the office--plan to try cft plus orthoses with gdfier shoes next visit.?Metatarsalgea:?I explained to the patient the possible etiologies of their Metatarsalgea Foot pain, including foot type/shoegear/activity level/exercise routine and the risks/benefits of all the different treatment options for pain including: No treatment at all, Rest, Ice, NSAIDs(only if well tolerated after meals), New/supportive Shoegear, Strappings and Tapings, Foot/Ankle AFO Bracing, Stretching exercises, Deep Tissue Massage, Arch support/shoe inserts, Custom orthoses, Topical analgesics including Aspercream/Voltaren gel, Physical Therapy, Cortisone injection therapy, EPAT/ESWT. Advantages and disadvantages of each option were discussed and the patients questions re: shoegear, custom vs prefabricated inserts, activity level, PO vs Topical medications (and their respective potential complications/drug interactions/side effects), and consistency in home treatment regimens for optimal success were answered to their verbally confirmed satisfaction.? * Follow Up:?2 Weeks * Images: * Sign off status: Completed true * Provider:?David Mejía DPM Date:? 024 Generated for Freddy huffman/Tone/Bianca on:?07/24/2024 07:49 AM EST History and Physical Notes * HPI (History of Present Illness) Category Sub-Category Detail Notes Category Not es Painful Nails Pt States Last PCP Visit: Date:: 06/01/2023 Foot Pain Aggrevated: any pressure, st anding, walking, barefoot walking Onset/Cause: unknown, denies stephanie garza Course: worse Duration: several years Nature: pressure, numbness Treatments: [...] no masses. The interspaces are clear, B/L Orthopedic GAIT ABNORMALITY: pronated, abducted, B/L MUSCLE [...] palpation, TA, T1, T2, T3, T5, T6 X-Rays - IMAGING REPORT Digits: show flattening of the MTH w ith asymmetrical joint space narrowing, 2nd digit Foot structure: reveals excess prona tion with, anterior break in cyme line Views: 3 views of Foot, RIG HT Clinical Indication(s): Evaluate Biomech anical Deformity
--- OUTSIDE RECORDS SUMMARY | 2024-07-24 07:49 | XMS_ITS ---
Author Organization [facility] Address [address] [place] [address] Care Team Providers Care Biosolids Management Technician Name Role Phone Jonathan Crandall MD Primary Care Provider Isis Gross [phone] Cooney Encounters Encounter Location Date Provider Diagnosis [facility] [address] [place] [address] 08/24/2023 Isis Santos Plan Of Treatment No Information Progress Notes * Andrea OLIVEIRAOB:[birth year] (64 yo M)Acc No.[id number]:08/24/2023 Progress Note Patient:Tani WILSON Provider:?Isis Santos DPM :1960???Age:63 Y???Sex:Male Brian e:08/24/2023 Address:[address] [place], [place] [id number] Pcp:Jonathan Crandall MD Subjective: * Chief Complaints: * ???1. Dr Cooney. * Medical History:? Objective: * Vitals:? Assessment: Plan: * Treatment: * Images: * The named appointment provid er may or may not be the originator of this progress note, and it is not deemed complete until electronically signed by the appointment provider. Sign off status: Pending * Provider:?Isis Santos DPM Date:? Generated for Garretti armida/Tone/eTransmitting on:?07/24/2024 07:48 AM EST
== END ==
LOC: HO.SL 07:46
PROVIDERS: PCP Internal Medicine; Visit Provider Internal Medicine
DX: G47.33 Obstructive sleep apnea (adult) (pediatric) (principal)
CPT/HCPCS: 95806

== ENCOUNTER → 2024-07-24 19:00 | Outpatient (BNV) | payer MEDICARE, SELFPAY | PROVIDERS: PCP Internal Medicine; Visit Provider Internal Medicine | DX: G47.33 Obstructive sleep apnea (adult) (pediatric) (principal) | CPT/HCPCS: 95806 ==

== ENCOUNTER 2024-09-05 10:51 | Outpatient (AMB) | payer MEDICARE, SELFPAY ==
--- NOTE | 2024-09-05 10:58 | MHC.PC.OV ---
Vital Signs 09/05/24 11:00 Height 6 ft 1 in Weight 273 lb BMI 36.0 BP 136/80 Blood Pressure Location Lt brachial Position Sitting Pulse 76 Temp 97.9 F Temp Source Axillary Pulse Oximetry (%) 96 Oxygen Delivery Method Room Air Intake Visit Reasons: Routine Sports Centre Manager Required: No Accompanied by: Self / Same As Patient Allergies No Known Allergies [No Known Allergies*] Allergy (Unverified 09/05/24 11:01) Tobacco use date assessed: 09/05/24 Fall risk assessment: 2 + Falls in past year Last assessed Fall Risk: 09/05/24 Dental Screening Dental Screen Date: 09/05/24 Did you have a dental visit in the last 12 months?: Yes Did you have a dental problem in the last 6 months where you did not have access to dental care?: No [facility] Medical History (Updated 09/05/24 @ 11:32 by Montrell Mcnamara MD) Obstructive sleep apnea Hypertension Surgical History H/O right knee surgery History of left knee surgery Ruptured cervical disc History of total left knee replacement (~2015) Family History (Updated 09/05/24 @ 11:14 by Elicia Sepulveda CMA) Mother Neuropathy Father Stomach cancer Social History Housing: House Patient Tobacco Use Status: Never used Tobacco e-Cigarette/Vaping Use: Never Used service: No Current occupational status: retired 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 1. Little interest or pleasure in doing things: not at all 2. Feeling down, depressed, or hopeless: not at all 3. Trouble falling or staying asleep, or sleeping too much: not at all 4. Feeling tired or having little energy: not at all 5. Poor appetite or overeating: not at all 6. Feeling bad about yourself - or that you are a failure or have let yourself or your family down: not at all 7. Trouble concentrating on things, such as reading the newspaper or watching television: not at all 8. Moving or speaking so slowly that other people could have noticed. Or the opposite - being so fidgety or restless that you have been moving around a lot more than usual: not at all 9. Thoughts that you would be better off or of hurting yourself in some way: not at all Total score: 0 Depression Screening Interpretation: Negative Depression Screening Done: Yes Source: Developed by Drs. Jason Palm, Sarah May, Neo Shore and colleagues, with an educational arlen from [employer]. Thrive Questionnaire Date Thrive assessed: 09/05/24 I am a: Patient Within the past 12 months, did the food you bought not last and you didn't have the money to get more?: Never true Within the past 12 months, did you worry whether your food would run out before you got money to buy more?: Never true Do you have trouble paying for medicines?: No Do you have trouble getting transportation to medical appointments?: No Do you have trouble paying your heating and electricity bill?: No Do you have trouble taking care of your child, family member or friend?: No Do you have trouble with day-to-day activities such as bathing, preparing meals, shopping, managing finances, etc.?: No Are you currently unemployed and looking for a job?: No Are you interested in more education?: No THRIVE Score: 0 AUDIT C Alcohol Use Questionnaire (AUDIT-C) 1. How often do you have a drink containing alcohol?: Monthly or less 2. How many drinks containing alcohol do you have on a typical day when you are drinking?: 1 or 2 3. How often do you have six or more drinks on one occasion?: Less than monthly Total Score: 2 MAYI-7 AMB Questionnaire MAYI-7 Date MAYI - 7 assessed: 09/05/24 Feeling nervous, anxious, or on edge: 0 = Not at all Not being able to stop or control worryin = Not at all Worrying too much about different things: 0 = Not at all Trouble relaxin = Not at all Being so restless that it is hard to sit still: 0 = Not at all Becoming easily annoyed or irritable: 0 = Not at all Feeling afraid as if something awful might happen: 0 = Not at all Total MAYI-7 score (0-4 normal; 5-9 mild; 10-14 moderate; 15-21 severe): 0 Source: Developed by Drs. Jason Palm, Sarah May, Neo Shore and colleagues, with an educational arlen from [employer]. Physical exam (Primary Care) Vital Signs: Last Vital Signs Temp 97.9 F 09/05/24 11:00 Pulse 76 09/05/24 11:00 BP 136/80 09/05/24 11:00 Pulse Ox 96 09/05/24 11:00 Oxygen Delivery Method Room Air 09/05/24 11:00 Care Plan Goal for BP management: BP is in range. Continue meds at same dosage BMI result Body Mass Index 36.0 BMI Assessment/Plan discussion: High (one pound per week weight loss suggested.) BMI High, discussed plan: lifestyle, weight reduction, dietary and physical activity Tobacco/Smoking Status: Tobacco use Status Tobacco use date assessed 09/05/24 09/05/24 11:03 Patient Tobacco Use Status Never used Tobacco 09/05/24 11:03 e-Cigarette/Vaping Use Never Used 09/05/24 11:03 PHQ-9: PHQ-9 Score PHQ-9: Total score 0 09/05/24 11:03 Depression Screening Interpretation: Negative Thrive Assessment: Date of Thrive Assessment Date Thrive assessed 09/05/24 09/05/24 11:03 Advance Care Planning discussion: Exists, not on file Date of discussion: 09/05/24 Who was present: Patient Forms completed: Health Care Proxy Actual minutes spent: 5 Coding Level of Care Code Complex EM visit Add On G2211 Diagnoses Primary osteoarthritis of right knee M17.11 Hypertension I10 Obstructive sleep apnea G47.33 Annual physical exam Z00.00 Additional Codes Vital Signs *Quality* - Advance Care Planning discussion: Exists, not on file ([id number]) Assessment & Plan Assessment & Plan (1) Primary osteoarthritis of right knee: Code(s): M17.11 - Unilateral primary osteoarthritis, right knee Category: Medical Plan: Condition is stable (2) Hypertension: Code(s): I10 - Essential (primary) hypertension Category: Medical Plan: BP in range, continue current medications (3) Obstructive sleep apnea: Code(s): G47.33 - Obstructive sleep apnea (adult) (pediatric) Category: Medical Plan: Using a CPAP device (4) Annual physical exam: Code(s): Z00.00 - Encounter for general adult medical examination without abnormal findings Plan: Screening colonoscopy in a few weeks Plan History of Present Illness The patient is a 64-year-old male presenting for an annual wellness examination and routine health maintenance. He reports a concern of being overweight and acknowledges the need to engage in more physical activity, such as walking, to address this. The patient has been retired and is currently living in a close-knit neighborhood, which could facilitate an active lifestyle. He reports experiencing tinnitus since the COVID-19 pandemic began, although no new interventions or exacerbations are noted. The patient follows with [facility] for a history of kidney stones and has an upcoming appointment to address this condition later in the month. Regarding his cardiovascular health, the patient has a history of hypertension. He is up to date with his blood pressure medications and has recently refilled his prescriptions. He expects a refill notification from the pharmacy soon, indicative of good medication adherence. Regarding his musculoskeletal history, the patient notes a knee replacement done approximately eight or nine years ago on the right knee, with a noted difference in function and comfort between the two knees. As of now, the left knee does not hamper his physical activities significantly. For sleep health, the patient has been utilizing a CPAP device since around 2003 for obstructive sleep apnea and is currently in the process of acquiring a new machine, with a follow-up set in a few weeks to ensure continuity of care. 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 [employer] - Overweight with a goal to increase physical activity by walking more - Resides in a supportive community environment - Uses bilateral hearing aids for hearing loss - Has prescription medications handled through a local pharmacy with a good adherence pattern Review of Systems - General: Denies significant health concerns beyond overweight; intends to increase physical activity - Ears: Reports tinnitus since the COVID- pandemic; uses bilateral hearing aids - Cardiovascular: Denies changes in previously diagnosed hypertension; current medication regimen reported - Musculoskeletal: Reports that a previous knee replacement has been relatively stable; mild discomfort noted with the remaining knee - Renal/Urology: Reports ongoing management for kidney stones with planned follow-up appointment - Sleep: Reports long-term use of CPAP for obstructive sleep apnea; pending new CPAP machine Physical Exam General: Cooperative and healthy appearing Nutritional Appearance: Well nourished Orientation/consciousness: Patient oriented x3 Limitations: No limitations Head: Normal to inspection General: Appearance normal, both eyes and all related structures Neck: Normal visual inspection Chest: Normal palpation of entire chest wall Respiratory: Breathe. Any pains here? The usual growing pains, old age pains. ormal respiratory effort Neurology: Patient oriented x3, uses a CPAP since 2003, hearing aid in both ears. Results Plan The primary focus for this visit was the patient?s wellness examination, addressing overweight through encouragement of regular physical activity, such as walking. The patient is to continue with his current blood pressure management plan with good adherence to medications, pinpointed by recent pharmacy interactions. Tinnitus since COVID-19 will be monitored with no current changes. Coordination of upcoming specialist visits for kidney stones and management of CPAP needs has been established, ensuring continuum of care. A colonoscopy appointment is confirmed for progressive screening measures. Patients will perform blood work as directed without the requirement of new paperwork, changing to electronic health records for convenience and efficiency. Patient was informed and verbally consented to the use of an ambient scribe for clinic note documentation during this visit. Discussion Notes I discussed the need for lifestyle modifications, primarily enhancing physical activity to manage weight and improve his general health. The conversation encompassed monitoring the chronic tinnitus since the onset of the COVID-19 pandemic. We agreed that no immediate alterations to his management plan are required. Hypertension continues to be managed with current prescriptions, and the patient is responsible for timely medication refills. Anticipatory guidance was provided regarding his upcoming appointments with specialists to address kidney stones and CPAP management, ensuring timely evaluations. To maintain screening diligence, the colonoscopy appointment with Dr. Brooks is to be followed, emphasizing proactive preventive healthcare. Blood work arrangements are facilitative with no physical forms, reflecting a transition to electronic formats, demonstrating an approach to enhance efficiency. Patient Instructions - Continue to work on increasing physical activity, especially through walking, to manage weight. - Maintain current blood pressure medication regimen, monitor adherence through pharmacy notifications. - Attend upcoming appointments with [facility] for kidney stone management and for CPAP evaluation. - Schedule and attend the colonoscopy with Dr. Brooks as planned. - Perform any required lab work without needing paperwork, as electronic systems are now utilized. - Monitor symptoms, and report any new concerns. Orders: Orders Complete Blood Count no Diff Today I10 - Essential (primary) hypertension, M17.11 - Unilateral primary osteoarthritis, right knee Lipid Panel Today I10 - Essential (primary) hypertension, M17.11 - Unilateral primary osteoarthritis, right knee Thyroid Stimulating Hormone Today I10 - Essential (primary) hypertension, M17.11 - Unilateral primary osteoarthritis, right knee Prostate Specific Antigen Scr Today N40.0 - Benign prostatic hyperplasia without lower urinary tract symptoms Basic Metabolic Panel Today I10 - Essential (primary) hypertension, M17.11 - Unilateral primary osteoarthritis, right knee Liver Panel Today I10 - Essential (primary) hypertension, M17.11 - Unilateral primary osteoarthritis, right knee UA and rflx microscopic Today I10 - Essential (primary) hypertension, M17.11 - Unilateral primary osteoarthritis, right knee
[2024-09-05 11:00] VITALS: BP 136/80; PULSE 76; TEMP 36.6; O2SAT 96; BMI 36.0
--- OUTSIDE RECORDS SUMMARY | 2024-09-05 12:40 | XMS_ITS | Patient Health Record ---
Author Organization [facility] Address [address] [place] [address] Care Team Providers Care Absorption Plant Operator Name Role Phone Jonathan Crandall MD Primary Care Provider UnavailMario Adam Jr Reason For Referral No Information Medications Medication [...] Once a day for 30 day(s) Active Immunizations Vaccine Route Administration Date Status Comme nts Influenza Unknown 01/28/2018 Administered Social History Tobacco Use: Social History Observation Description Date Details (start date - stop date) Never Smoker NA - NA Tobacco Use/Smoking Question Answer Notes Patient is a nonsmoker Alcohol Screen Question Answer Notes Did you have a drink containing alcohol in the p ast year? No Points 0 Interpretation Negative Problems Problem Type SNOMED Code ICD Code Onset Dates Problem Status W/U Status Risk Notes Problem 519688948 Colon cancer screening (Z12.11) Active confirmed Problem 695426978 Encounter for other preprocedural examination (Z01.818) Active confirmed Plan Of Treatment Future Test Test Name Order Date COLONOSCOPY 10/19/2018 Next Appt Details Provider Name:Mario toscano Jr, 09/10/2024 11:20:00 AM, [address], [address], [place], [address], Insurance Providers Payer Name Payer Address Payer Phone Subscriber Number Group Number Insured Name Patient Relationship to Insured Coverage Start Date Coverage End Date [place] [address] [place] [address] [id number] MASSIEL RENEE Self - patient is the insured [facility] [address] [place] [address] [id number] MASSIEL RENEE Self - patient is the insured Medical (General) History Medical History History ICD Code hx of kidney stone- Dr. Aguilera sleep apnea- cpap machine hypertension Surgical History Surgery Date(Month/Year) left knee surgery total replacement 2016 right knee arthritis/ meniscus repair ruptured disc in neck umbilical hernia repair tonsillectomy age 10
--- OUTSIDE RECORDS SUMMARY | 2024-09-05 12:40 | XMS_ITS ---
Author Organization [facility] Address [address] [place] [address] Care Team Providers Care Carroting Machine Offbearer Name Role Phone Jonathan Crandall MD Primary Care Provider Isis Gross [phone] Cooney Encounters Encounter Location Date Provider Diagnosis [facility] [address] [place] [address] 08/24/2023 Isis Santos Plan Of Treatment No Information Progress Notes * Andrea OLIVEIRAOB:[birth year] (64 yo M)Acc No.[id number]:08/24/2023 Progress Note Patient:Tani WILSON Provider:?Isis Santos DPM :1960???Age:63 Y???Sex:Male Brian e:08/24/2023 Address:[address] [place], [place] [address] Pcp:Jonathan Crandall MD Subjective: * Chief Complaints: [...] Santos DPM Date:? Generated for Garretti armida/Tone/eTransmitting on:?09/05/2024 12:39 PM EDT
--- OUTSIDE RECORDS SUMMARY | 2024-09-05 12:40 | XMS_ITS ---
[facility] Address [address] [place] [address] Care Team Providers Care Laborer [place] Name Role Phone Jonathan Crandall MD Primary Care Provider Unavaila Isis Kelly Unavailable [phone] David Mejía Unavailable [phone] Allergies No Known Allergies REASON FOR VISIT [...] 024 Encounters Encounter Location Date Provider Diagnosis [facility] [place] [address] [place] [address] 08/24/2023 David Mejía Tinea unguium B35.1 ; [...] as necessary. Patient chooses, no pharmaceutical tx (68699) Progress Notes * Andrea OLIVEIRAOB:[birth year] (63 yo M)Acc No.[id number]:08/24/2023 Progress Note Patient:?Tani Oliveira Provider:?David Mejía DPM :1960???Age:63 Y???Sex:Male Brian e:08/24/2023 Address:[address] [place] [address], [facility] [place] Pcp:Jonathan Crandall MD Subjective: * Chief Complaints: [...] ?Exercise: yes, walking. ?Marital status: . 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 * Medications:?TakingamLODIPin e Besylate 5 MG Tablet [...] as necessary. Patient chooses, no pharmaceutical tx (03677).?Nail Avulsion:?Location?Total nail, TA.?Anesthesia?3cc of 1 percent Lidocaine/Epi [...] surgical procedures to prevent recurrence.? * Procedure Codes:?00723 DEBRI DE NAIL, 6 OR MORE, Modifiers: XS 01371 Avulsion Plate, Modifiers: [place] [address] X-RAY EXAM OF RIGHT FOOT 3V, Modifiers: [...] DPM Date:? 024 Generated for Freddy huffman/Tone/Bianca on:?09/05/2024 12:39 PM EDT History and Physical Notes * HPI (History [...]
--- OUTSIDE RECORDS SUMMARY | 2024-09-05 12:40 | XMS_ITS | Patient Health Record ---
Author Organization [facility] Address [address] [place] [address] Care Team Providers Care Boot Lace Cutter Machine Name Role Phone Jonathan Crandall MD Primary Care Provider Unavaila johnie Santos Isis Unavailable [phone] Mejía David Unavailable [phone] Allergies No Known Allergies Reason For Referral [...] 09/08/2023 Encounters Encounter Location Date Provider Diagnosis [facility] [address] [place] [address] 09/08/2023 David Mejía Tinea unguium B35.1 ; [...] Insured Coverage Start Date Coverage End Date [facility] 65 Medicare Preferred [address] [place] [address] [phone] [id number] Tani Hou Self - patient is the insured Medical (General) History Medical History History ICD Code Arthritis Back,Hip,and Knee pain Broken bones High blood pressure Measles Mumps Chicken pox Bone implants/screws Kidney stones Surgical History Surgery Date(Month/Year) left knee replacement 2015 umbilical hernia 1999 herniated disk in neck 2001 tonsillectomy achilles tendon surgery 1985 wisdom tooth extraction 2019
--- OUTSIDE RECORDS SUMMARY | 2024-09-05 12:40 | XMS_ITS ---
[facility] Address [address] [place] [address] Care Team Providers Care Mine Patrol Name Role Phone Jonathan Crandall MD Primary Care Provider UnavailIsis Hoyos Unavailable [phone] David Mejía Unavailable [phone] Allergies No Known Allergies REASON FOR VISIT [...] 024 Encounters Encounter Location Date Provider Diagnosis [facility] [place] [address] [place] [address] 09/08/2023 David Mejía Tinea unguium B35.1 ; [...] symptoms of infection or any untoward reactions (17913) Progress Notes * Andrea OLIVEIRAOB:[birth year] (63 yo M)Acc No.[id number]:09/08/2023 Progress Notes Patient:?Tani Oliveira Provider:?David Mejía DPM :1960???Age:63 Y???Sex:Male Brian e:09/08/2023 Address:[address] [place] [address], [facility], [facility] Pcp:Jonathan Crandall MD Subjective: * Chief Complaints: [...] ?Exercise: yes, walking. ?Marital status: . 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 * Medications:?TakingFlomax 0. 4 MG Capsule 1 [...] symptoms of infection or any untoward reactions (53851).? * Procedure Codes:?65288 ACTIV E WOUND CARE/20 CM OR < [...] Mejía DPM Date:? 024 Generated for Freddy huffman/Tone/Leesaitting on:?09/05/2024 12:39 PM EDT History and Physical [...]
== END 2024-09-05 11:33 | disposition home or self-care (01) ==
PROVIDERS: PCP Internal Medicine; Visit Provider Internal Medicine
DX: Z00.00 Encounter for general adult medical examination without abnormal findings (principal); M17.11 Unilateral primary osteoarthritis, right knee; I10 Essential (primary) hypertension; G47.33 Obstructive sleep apnea (adult) (pediatric)

== ENCOUNTER → 2024-09-05 10:51 | Outpatient (BNVA) | payer MEDICARE, SELFPAY | PROVIDERS: PCP Internal Medicine; Visit Provider Internal Medicine | DX: Z00.00 Encounter for general adult medical examination without abnormal findings (principal); M17.11 Unilateral primary osteoarthritis, right knee; I10 Essential (primary) hypertension; G47.33 Obstructive sleep apnea (adult) (pediatric) | CPT/HCPCS: 99387 ==

== ENCOUNTER 2024-09-07 05:59 | Outpatient (REF) | payer MEDICARE, SELFPAY ==
--- OUTSIDE RECORDS SUMMARY | 2024-09-07 06:01 | XMS_ITS ---
Author Organization [facility] Address [address] [place] [address] Care Team Providers Care Furniture Upholstery Mechanic Name Role Phone Jonathan Crandall MD Primary Care Provider UnavailIsis Hoyos Unavailable [phone] David Mejía Unavailable [phone] Allergies No Known Allergies REASON FOR VISIT [...] 024 Encounters Encounter Location Date Provider Diagnosis [facility] [place] [address] [place] [address] 09/08/2023 David Mejía Tinea unguium B35.1 ; [...] symptoms of infection or any untoward reactions (83457) Progress Notes * Andrea OLIVEIRAOB:[birth year] (63 yo M)Acc No.[id number]:09/08/2023 Progress Notes Patient:?Tani Oliveira Provider:?David Mejía DPM :1960???Age:63 Y???Sex:Male Brian e:09/08/2023 Address:[address] [place] [address], [facility], [id number] Pcp:Jonathan Crandall MD Subjective: * Chief Complaints: [...] ?Exercise: yes, walking. ?Marital status: . 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 * Medications:?TakingFlomax 0. 4 MG Capsule 1 [...] symptoms of infection or any untoward reactions (23886).? * Procedure Codes:?02774 ACTIV E WOUND CARE/20 CM OR < [...] DPM Date:? 024 Generated for Freddy huffman/Tone/Leesaitting on:?09/07/2024 06:01 AM EDT History and Physical Notes * HPI [...]
--- OUTSIDE RECORDS SUMMARY | 2024-09-07 06:01 | XMS_ITS ---
Author Organization [facility] Address [address] [place] [address] Care Team Providers Care Land Acquisition Analyst Name Role Phone Jonathan Crandall MD Primary Care Provider Isis Gross [phone] Cooney Encounters Encounter Location Date Provider [facility] [address] [place] [address] 08/24/2023 Isis Santos Plan Of Treatment No Information Progress Notes * Andrea OLIVEIRAOB:[birth year] (64 yo M)Acc No.[id number]:08/24/2023 Progress Note Patient:Tani WILSON Provider:?Isis Santos DPM :1960???Age:63 Y???Sex:Male Brian e:08/24/2023 Address:[address] [place], [place] [id number] Pcp:Jonathan Crandall MD Subjective: * Chief Complaints: [...] Santos DPM Date:? Generated for Garretti armida/Tone/eTransmitting on:?09/07/2024 06:01 AM EDT
--- OUTSIDE RECORDS SUMMARY | 2024-09-07 06:02 | XMS_ITS ---
[facility] Address [address] [place] [address] Care Team Providers Care Supervisor Frame Sample And Pattern Name Role Phone Jonathan Crandall MD Primary Care Provider Unavaila Isis Kelly Unavailable [phone] David Mejía Unavailable [phone] Allergies No Known Allergies REASON FOR VISIT [...] 024 Encounters Encounter Location Date Provider Diagnosis [facility] [place] [address] [place] [address] 08/24/2023 David Mejía Tinea unguium B35.1 ; [...] as necessary. Patient chooses, no pharmaceutical tx (29583) Progress Notes * Andrea OLIVEIRAOB:[birth year] (63 yo M)Acc No.[id number]:08/24/2023 Progress Note Patient:?Tani Oliveira Provider:?David Mejía DPM :1960???Age:63 Y???Sex:Male Brian e:08/24/2023 Address:[address] [place] [address], [facility], [id number] Pcp:Jonathan Crandall MD Subjective: * Chief Complaints: [...] ?Exercise: yes, walking. ?Marital status: . 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 * Medications:?TakingamLODIPin e Besylate 5 MG Tablet [...] as necessary. Patient chooses, no pharmaceutical tx (85902).?Nail Avulsion:?Location?Total nail, TA.?Anesthesia?3cc of 1 percent Lidocaine/Epi [...] surgical procedures to prevent recurrence.? * Procedure Codes:?12445 DEBRI DE NAIL, 6 OR MORE, Modifiers: XS 40442 Avulsion Plate, [place]: [place] [address] X-RAY EXAM OF RIGHT FOOT 3V, Modifiers: [...] DPM Date:? 024 Generated for Freddy huffman/Tone/Bianca on:?09/07/2024 06:01 AM EDT History and Physical [...]
--- OUTSIDE RECORDS SUMMARY | 2024-09-07 06:02 | XMS_ITS | Patient Health Record ---
Author Organization [facility] Address [address] [place] [address] Care Team Providers Care Certified Medical Coder Name Role Phone Jonathan Crandall MD Primary [...] Problem Status W/U Status Risk Notes Problem 397339759 Colon cancer screening (Z12.11) Active confirmed Problem 208402510 Encounter for other preprocedural examination (Z01.818) Active confirmed Plan Of Treatment Future Test Test Name Order Date COLONOSCOPY 10/19/2018 Next Appt Details Provider Name:Mario toscano Jr, 09/10/2024 11:20:00 AM, [address], [address], [place], [address], Insurance Providers Payer Name Payer Address Payer Phone Subscriber Number Group Number Insured Name Patient Relationship to Insured Coverage Start Date Coverage End Date MEDICARE OF [place] [address] [place] [address] [phone] [id number] MASSIEL RENEE Self - patient is the insured [facility] [address] [place] [address] [id number] MASSIEL RENEE Self - patient is the insured Medical (General) History Medical History History ICD Code hx of kidney stone- Dr. Aguilera sleep apnea- cpap machine hypertension Surgical History Surgery Date(Month/Year) left knee surgery total replacement 2016 right knee arthritis/ meniscus repair ruptured disc in neck umbilical hernia repair tonsillectomy age 10
--- OUTSIDE RECORDS SUMMARY | 2024-09-07 06:02 | XMS_ITS | Patient Health Record ---
Author Organization [facility] [place] Address [address] [facility] [place] [address] Care Team Providers Care Communications Billing Analyst Name Role Phone Jonathan Crandall MD Primary Care Provider Unavaila johnie Santos Isis Unavailable [phone] Mejía David Unavailable [phone] Allergies No Known Allergies Reason For Referral [...] 09/08/2023 Encounters Encounter Location Date Provider Diagnosis [facility] [place] [address] [place] [address] 09/08/2023 David Mejía Tinea unguium B35.1 ; [...] Insured Coverage Start Date Coverage End Date [facility] 65 Medicare Preferred [address] [place] [address] [id number] Tani Hou Self - patient is the [...]
[2024-09-07 07:08] LABS: Hematocrit 43.3 % (42.0-52.0); Hemoglobin 15.1 g/dl (14.0-18.0); Mean Corpuscular HGB Conc 34.9 g/dl (31.0-36.0); Mean Corpuscular Hemoglobin 30.4 pg (27.0-33.0); Mean Corpuscular Volume 87.1 fL (80.0-98.0); Mean Platelet Volume 10.1 fL (9.4-12.4); Platelet Count 233 X10*3/uL (160-400); Red Blood Count 4.97 X10*6/uL (4.60-5.80); Red Cell Distribution Width 13.6 % (11.0-16.0); White Blood Count 6.6 X10*3/uL (4.8-10.8)
[2024-09-07 07:41] LABS: Alanine Aminotransferase 80 U/L (0-40); Albumin Level 4.3 g/dL (3.5-5.0); Alkaline Phosphatase 57 U/L (39-117); Anion Gap 10 (12-20); Aspartate Amino Transferase 39 U/L (5-37); Bilirubin Direct 0.2 mg/dL (0.0-0.5); Bilirubin Total 0.8 mg/dL (0.0-1.0); Blood Urea Nitrogen 22 mg/dL (9-16); Calcium 9.2 mg/dL (8.4-10.2); Carbon Dioxide 27 mmol/L (22-29); Chloride 113 mmol/L (96-108); Cholesterol 150 mg/dL (<200); Estimated Glomerular Filt Rate > 60; Glucose Random 97 mg/dL (60-115); HDL Cholesterol 46 mg/dL (>40); LDL Cholesterol Calculated 92 mg/dL (<100); Potassium 3.8 mmol/L (3.3-5.1); Sodium 146 mmol/L (135-145); Total Protein 6.9 g/dL (6.5-8.0); Triglycerides 63 mg/dL (<150)
[2024-09-07 07:44] LABS: Prostate Specific Antigen Scr 2.82 ng/mL (<0.05-4.0)
[2024-09-07 07:56] LABS: Thyroid Stimulating Hormone 2.26 uIU/mL (0.32-4.0)
[2024-09-07 11:13] LABS: Appearance Urine Clear; Color Urine Dark Yellow; Glucose Urine UA Negative (Negative); Leukocyte Esterase Urine Trace (Negative); Nitrite Urine Negative (Negative); Specific Gravity - Urine 1.025 (1.005-1.025); UMIC TRIGGER UA YES; Urine Blood Trace (Negative); Urine Ketones Trace mg/dL (Negative); Urine Protein Negative (Neg-Trace)
[2024-09-07 11:28] LABS: Bacteria Urine None Seen (None Seen); Hyaline Casts Urine 0-2 /LPF (0-2); Squamous Epithelial Cell Urine 0-2 /HPF (0-2); WBC Urine 0-5 /HPF (0-5)
== END 2024-09-07 06:00 | disposition home or self-care (01) ==
LOC: HO.LAB 05:59
PROVIDERS: PCP Internal Medicine; Visit Provider Internal Medicine
DX: M17.11 Unilateral primary osteoarthritis, right knee (principal); I10 Essential (primary) hypertension; N40.0 Benign prostatic hyperplasia without lower urinary tract symptoms; Z12.5 Encounter for screening for malignant neoplasm of prostate
CPT/HCPCS: 36415; 80048; 80061; 80076; 81001; 84153; 84443; 85027

== ENCOUNTER 2024-09-24 10:19 | Outpatient (AMB) | payer MEDICARE, SELFPAY ==
--- NOTE | 2024-09-23 19:33 | A.OFFVIS_ITS ---
Vital Signs 09/24/24 10:24 Height 6 ft 1 in Weight 273 lb 5.971 oz BMI 36.1 BP 130/78 Blood Pressure Location Lt brachial Position Sitting Pulse 101 H Pulse Source Pulse Oximeter Pulse Oximetry (%) 97 Oxygen Delivery Method Room Air Intake Visit Reasons: neyda Casting Operator Required: No Patternmaker Apprentice Wood: Patternmaker Apprentice Wood offered & declined Accompanied by: Self / Same As Patient Allergies No Known Allergies [No Known Allergies*] Allergy (Unverified 09/24/24 10:31) Medication List - Last Reconciled 09/24/24 by Karely Monet LPN amlodipine 5 mg PO BID doxazosin 8 mg (2 x 4 mg) PO BEDTIME hydrochlorothiazide 12.5 mg PO DAILY ibuprofen 200 mg PO Q6H PRN inositol-choline bju-khrpg-E-C 500 mg (Lipo-Flavonoid) tabs PO losartan 100 mg PO DAILY tamsulosin mg PO HPI HPI neyda: Details: Tani is a pleasant 64-year-old male, never smoker with underlying obstructive sleep apnea and hypertension. He was referred by PCP for management of obstructive sleep apnea. He has been maintained on CPAP therapy since 2003 and has been compliant and benefitting from therapy. Prior to starting therapy patient with loud snoring and witnessed apneas. Currently using machine that is >7 years old, with full face mask, DME is [employer]. He recently underwent home sleep study which revealed moderately severe sleep apnea with no significant nocturnal hypoxemia. Average AHI 22, however when supine 59. Recommendations were made for CPAP therapy in APAP mode with pressure settings of 6-20 cm H2O. Today denies any respiratory complaints. [facility] Medical History (Updated 09/05/24 @ 11:32 by Montrell Mcnamara MD) Obstructive sleep apnea Hypertension Surgical History (Updated 09/07/24 @ 05:45 by Montrell Mcnamara MD) History of colonoscopy (08/03/19) H/O right knee surgery History of left knee surgery Ruptured cervical disc History of total left knee replacement (~2015) Family History (Updated 09/05/24 @ 11:14 by Elicia Sepulveda MA) Mother Neuropathy Father Stomach cancer Social History Housing: House Patient Tobacco Use Status: Never used Tobacco e-Cigarette/Vaping Use: Never Used service: No Current occupational status: retired 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[employer] Cognitive needs: No Hearing needs: Yes (bilateral ) Vision needs: Yes (reading glasses) Review of Systems Const Denies chills, Denies excessive sweating, Denies fever(s), Denies headache(s) and Denies night sweats Eyes Denies dry eyes, Denies irritation and Denies itchy eyes ENT Reports Normal hearing present, Denies headache(s), Denies nasal congestion, Denies nasal discharge, Denies post nasal drip and Denies sore throat Card Denies chest pain, Denies chest pain at rest, Denies chest pain with activity, Denies claudication, Denies leg edema, Denies dyspnea, Denies dyspnea on exertion, Denies orthopnea and Denies paroxysmal nocturnal dyspnea Resp Denies chest congestion, Denies cough, Denies excessive phlegm production, Denies pain on inspiration, Denies pain with cough, Denies dyspnea, Denies dyspnea on exertion, Denies stridor and Denies wheezing Musc Denies myalgias Neuro Reports Normal hearing present and Denies headache(s) Endo Denies excessive sweating Roscoe/Lymph Denies lymphadenopathy Aller/Immun Denies itchy eyes, Denies seasonal rhinorrhea and Denies wheezing Physical Exam Vital Signs: Last Vital Signs Pulse 101 H 09/24/24 10:24 BP 130/78 09/24/24 10:24 Pulse Ox 97 09/24/24 10:24 Oxygen Delivery Method Room Air 09/24/24 10:24 BMI result Body Mass Index 36.1 Const General: cooperative, healthy appearing, comfortable, no acute distress, well developed and alert Nutritional Appearance: obese Orientation/consciousness: patient oriented x3 Limitations: no limitations HEENT Head: Yes normal to inspection, Yes normocephalic and Yes atraumatic Ears: hearing grossly normal bilaterally and external ears normal Eyes General: appearance normal, both eyes and all related structures Eyelids: Yes eyelids normal Sclerae: sclerae normal EOM: EOMs intact bilaterally Neck Neck: Yes normal visual inspection and Yes no lymphadenopathy Lymphatic: no lymphadenopathy noted Chest Chest palpation & inspection: normal inspection of the chest Resp Effort & Inspection: normal respiratory effort, able to speak in complete sentences, no audible wheezes, no cough, no stridor, not tachypneic, no tripod positioning and no use of accessory muscles Auscultation: clear to auscultation bilaterally Cardio Jugular venous distension: no JVD Rate: regular rate Rhythm: regular rhythm Skin Other: warm, dry General skin exam: no rashes or lesions noted Neuro General: patient oriented x3 Cranial nerves: Yes Normal hearing present Cognition (Neuro): normal cognition Gait exam (Neuro): Normal gait present Extrem General: Yes normal to inspection, Yes capillary refill normal, Yes no clubbing, cyanosis or edema and Yes no pedal edema Psych Appearance: grossly normal and well kempt Speech and movement: Normal speech and movement present and Clear speech present Affect: normal affect Attitude: cooperative Thought process: Normal thought process present Thought content: Normal thought content present Insight: Good insight present (Psych) Judgement: Good judgement present (Psych) Assessment & Plan Assessment & Plan (1) Obstructive sleep apnea: Code(s): G47.33 - Obstructive sleep apnea (adult) (pediatric) Category: Medical Plan Reviewed home sleep study results with patient which revealed moderately severe sleep apnea, AHI of 22, however when supine 59, with no significant nocturnal hypoxemia. Will send in prescription for APAP mode and pressure settings of 6-20 cm H2O with close monitoring for compliance and benefits. Sleep hygiene education reviewed. He is aware if there are any issues with the mask or CPAP machine, he will call the DME/office. All questions were answered and patient is in agreement of plan. Will follow up in 8-12 weeks or sooner if needed. Coding Level of Care Code New Pt Level 3 (07900) Diagnoses Obstructive sleep apnea G47.33
[2024-09-24 10:24] VITALS: BP 130/78; PULSE 101; O2SAT 97; BMI 36.1
--- OUTSIDE RECORDS SUMMARY | 2024-09-24 12:01 | XMS_ITS | Patient Health Record ---
Author Organization [facility] [place] Address [address] [facility] [place] [address] Care Team Providers Care Payroll Services Analyst Name Role Phone Jonathan Crandall MD Primary Care Provider Eveline jett Angelo Santosen Unavailable [phone] Allergies No Known Allergies Reason For Referral [...] to breakdown of skin (L97.521) Active confirmed Plan Of Treatment Pending Test Test Name Order Date X ray : Foot, right 3V 08/24/2023 Insurance Providers Payer Name Payer Address Payer Phone Subscriber Number Group Number Insured Name Patient Relationship to Insured Coverage Start Date Coverage End Date [facility] 65 Medicare Preferred [address] [place] [address] [phone] [id number] Tani Hou Self - patient is the [...]
--- OUTSIDE RECORDS SUMMARY | 2024-09-24 12:01 | XMS_ITS ---
Author Organization [facility] Address [address] [place] [address] Care Team Providers Care Compactor Driver Name Role Phone Jonathan Crandall MD Primary Care Provider UnavailIsis Hoyos Unavailable [phone] David Mejía Unavailable [phone] Allergies No Known Allergies REASON FOR VISIT [...] 024 Encounters Encounter Location Date Provider Diagnosis [facility] [place] [address] [place] [address] 09/08/2023 David Mejía Tinea unguium B35.1 ; [...] symptoms of infection or any untoward reactions (70057) Progress Notes * Andrea OLIVEIRAOB:[birth year] (63 yo M)Acc No.[id number]:09/08/2023 Progress Notes Patient:?Tani Oliveira Provider:?David Mejía DPM :1960???Age:63 Y???Sex:Male Brian e:09/08/2023 Address:[address] [place] [address], [facility], [facility] Pcp:Jonathan Crandall MD Subjective: * Chief Complaints: [...] ?Exercise: yes, walking. ?Marital status: . 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 * Medications:?TakingFlomax 0. 4 MG Capsule 1 [...] symptoms of infection or any untoward reactions (04937).? * Procedure Codes:?49562 ACTIV E WOUND CARE/20 CM OR < [...] DPM Date:? 024 Generated for Freddy huffman/Tone/Leesaitting on:?09/24/2024 12:01 PM EDT History and Physical Notes * [...]
--- OUTSIDE RECORDS SUMMARY | 2024-09-24 12:01 | XMS_ITS ---
Author [facility] Address [address] [place] [address] Care Team Providers Care Technical Programs Manager Name Role Phone Jonathan Crandall MD Primary Care Provider Unavaila Isis Kelly Unavailable [phone] David Mejía Unavailable [phone] Allergies No Known Allergies REASON FOR VISIT [...] 024 Encounters Encounter Location Date Provider Diagnosis [facility] [place] [address] [place] [address] 08/24/2023 David Mejía Tinea unguium B35.1 ; [...] as necessary. Patient chooses, no pharmaceutical tx (62257) Progress Notes * Andrea OLIVEIRAOB:[birth year] (63 yo M)Acc No.[id number]:08/24/2023 Progress Note Patient:?Tani Oliveira Provider:?David Mejía DPM :1960???Age:63 Y???Sex:Male Brian e:08/24/2023 Address:[address] [place] [address], [facility], [place] Pcp:Jonathan Crandall MD Subjective: * Chief Complaints: [...] ?Exercise: yes, walking. ?Marital status: . 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 * Medications:?TakingamLODIPin e Besylate 5 MG Tablet [...] as necessary. Patient chooses, no pharmaceutical tx (36857).?Nail Avulsion:?Location?Total nail, TA.?Anesthesia?3cc of 1 percent Lidocaine/Epi [...] surgical procedures to prevent recurrence.? * Procedure Codes:?84831 DEBRI DE NAIL, 6 OR MORE, Modifiers: XS 92555 Avulsion Plate, [place]: [place] [address] X-RAY EXAM OF RIGHT FOOT 3V, Modifiers: [...] DPM Date:? 024 Generated for Freddy huffman/Tone/Bianca on:?09/24/2024 12:01 PM EDT History and Physical [...]
--- OUTSIDE RECORDS SUMMARY | 2024-09-24 12:01 | XMS_ITS ---
Author Organization [facility] Address [address] [place] [address] Care Team Providers Care Dictaphone Mechanic Name Role Phone Jonathan Crandall MD Primary Care Provider Isis Gross [phone] Cooney Encounters Encounter Location Date Provider Diagnosis [facility] [address] [place] [address] 08/24/2023 Isis Santos Plan Of Treatment No Information Progress Notes * Andrea OLIVEIRAOB:[birth year] (64 yo M)Acc No.[id number]:08/24/2023 Progress Note Patient:Tani WILSON Provider:?Isis Santos DPM :1960???Age:63 Y???Sex:Male Brian e:08/24/2023 Address:[address] [place], [place] [address] Pcp:Jonathan Crandall MD Subjective: * Chief Complaints: [...] Santos DPM Date:? Generated for Garretti armida/Tone/eTransmitting on:?09/24/2024 12:01 PM EDT
== END 2024-09-24 10:59 | disposition home or self-care (01) ==
LOC: HO.HPS 10:19
PROVIDERS: PCP Internal Medicine; Referring Provider Internal Medicine; Visit Provider Nurse Practitioner Family
DX: G47.33 Obstructive sleep apnea (adult) (pediatric) (principal)
CPT/HCPCS: 99203

== ENCOUNTER → 2024-09-24 10:19 | Outpatient (BNVA) | payer MEDICARE, SELFPAY | PROVIDERS: PCP Internal Medicine; Referring Provider Internal Medicine; Visit Provider Nurse Practitioner Family | DX: G47.33 Obstructive sleep apnea (adult) (pediatric) (principal); I10 Essential (primary) hypertension; Z99.89 Dependence on other enabling machines and devices | CPT/HCPCS: 99202 ==

== ENCOUNTER 2024-10-10 12:58 | Outpatient (AMB) | payer MEDICARE, SELFPAY ==
[2024-10-10 09:48] VITALS: BP 134/82; PULSE 66; TEMP 36.2; O2SAT 98; BMI 36.4
--- NOTE | 2024-10-10 09:48 | MHC.PC.OV ---
Vital Signs 10/10/24 09:48 Height 6 ft 1 in Weight 276 lb BMI 36.4 BP 134/82 Blood Pressure Location Lt brachial Position Sitting Pulse 66 Pulse Source Pulse Oximeter Temp 97.1 F Temp Source Axillary Pulse Oximetry (%) 98 Oxygen Delivery Method Room Air Intake Visit Reasons: Routine / Back Pain Knife Grinder Required: No Accompanied by: Spouse Allergies No Known Allergies [No Known Allergies*] Allergy (Verified 10/10/24 09:49) Tobacco use date assessed: 10/10/24 Fall risk assessment: No Falls in past year Last assessed Fall Risk: 10/10/24 Dental Screening Dental Screen Date: 10/10/24 Did you have a dental visit in the last 12 months?: Yes Did you have a dental problem in the last 6 months where you did not have access to dental care?: No [facility] Medical History Obstructive sleep apnea Hypertension Surgical History History of colonoscopy (08/03/19) H/O right knee surgery History of left knee surgery Ruptured cervical disc History of total left knee replacement (~2015) Family History (Updated 10/10/24 @ 13:06 by Elicia Sepulveda MA) Mother Neuropathy Father Stomach cancer Social History Housing: House Patient Tobacco Use Status: Never used Tobacco e-Cigarette/Vaping Use: Never Used service: No Current occupational status: retired Current occupation: [employer] R[employer]ht Handed Cognitive needs: No Hearing needs: Yes (bilateral ) Vision needs: Yes (reading glasses) Questionnaire PHQ-9 Over the last 2 weeks, how often have you been bothered by any of the following problems? 1. Little interest or pleasure in doing things: not at all 2. Feeling down, depressed, or hopeless: not at all 3. Trouble falling or staying asleep, or sleeping too much: not at all 4. Feeling tired or having little energy: not at all 5. Poor appetite or overeating: not at all 6. Feeling bad about yourself - or that you are a failure or have let yourself or your family down: not at all 7. Trouble concentrating on things, such as reading the newspaper or watching television: not at all 8. Moving or speaking so slowly that other people could have noticed. Or the opposite - being so fidgety or restless that you have been moving around a lot more than usual: not at all 9. Thoughts that you would be better off or of hurting yourself in some way: not at all Total score: 0 Source: Developed by Drs. Jason Palm, Sarah May, Neo Shore and colleagues, with an educational arlen from [employer]. Thrive Questionnaire Date Thrive assessed: 10/10/24 I am a: Patient Within the past 12 months, did the food you bought not last and you didn't have the money to get more?: Never true Within the past 12 months, did you worry whether your food would run out before you got money to buy more?: Never true Do you have trouble paying for medicines?: No Do you have trouble getting transportation to medical appointments?: No Do you have trouble paying your heating and electricity bill?: No Do you have trouble taking care of your child, family member or friend?: No Do you have trouble with day-to-day activities such as bathing, preparing meals, shopping, managing finances, etc.?: No Are you currently unemployed and looking for a job?: No Are you interested in more education?: No THRIVE Score: 0 AUDIT C Alcohol Use Questionnaire (AUDIT-C) 1. How often do you have a drink containing alcohol?: Monthly or less 2. How many drinks containing alcohol do you have on a typical day when you are drinking?: 1 or 2 3. How often do you have six or more drinks on one occasion?: Less than monthly Total Score: 2 MAYI-7 AMB Questionnaire MAYI-7 Date MAYI - 7 assessed: 10/10/24 Feeling nervous, anxious, or on edge: 0 = Not at all Not being able to stop or control worryin = Not at all Worrying too much about different things: 0 = Not at all Trouble relaxin = Not at all Being so restless that it is hard to sit still: 0 = Not at all Becoming easily annoyed or irritable: 0 = Not at all Feeling afraid as if something awful might happen: 0 = Not at all Total MAYI-7 score (0-4 normal; 5-9 mild; 10-14 moderate; 15-21 severe): 0 Source: Developed by Drs. Jason Palm, Sarah May, Neo Shore and colleagues, with an educational arlen from [facility]. Physical exam (Primary Care) Vital Signs: Last Vital Signs Temp 97.1 F 10/10/24 09:48 Pulse 66 10/10/24 09:48 BP 134/82 10/10/24 09:48 Pulse Ox 98 10/10/24 09:48 Oxygen Delivery Method Room Air 10/10/24 09:48 BMI result Body Mass Index 36.4 Tobacco/Smoking Status: Tobacco use Status Tobacco use date assessed 10/10/24 10/10/24 09:50 Patient Tobacco Use Status Never used Tobacco 10/10/24 09:50 e-Cigarette/Vaping Use Never Used 10/10/24 09:50 PHQ-9: PHQ-9 Score PHQ-9: Total score 0 10/10/24 13:06 Thrive Assessment: Date of Thrive Assessment Date Thrive assessed 10/10/24 10/10/24 09:50 Coding Level of Care Code Est Pt Level 4 (60727) Complex EM visit Add On G2211 Diagnoses Low back ache M54.50 Assessment & Plan Assessment & Plan (1) Low back ache: Code(s): M54.50 - Low back pain, unspecified Plan: Trial of muscle relaxants, NSAIDS and PT. If symptoms do not improve in 6 weeks, imaging modality will be considered. Plan History of Present Illness The patient is a 64-year-old male presenting with low back pain that radiates to the left leg, a condition progressively worsening over the past month. 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 However, recent symptoms include numbness in the left leg. He had a prior MRI in 2021 indicating L5-S1 degeneration, aligning with a history of spinal stenosis noted in prior reports. Despite conservative management efforts, the condition remains unresolved. The patient's medical history also includes surgical intervention for a cervical herniated disc at the C5-C6 level. He has been advised that future consultation with a spine surgeon is contingent upon obtaining a recent MRI, which is currently unapproved by insurance without additional conservative treatment attempts. 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 - Family Status: , 's name is María. - Insurance: Medicare coverage discussed. - Health Behaviors: Management of symptoms with ibuprofen, use of heat pads. Review of Systems - Musculoskeletal: Reports chronic low back pain; radiating pain and numbness in the left leg. - Neurological: Denies any other neurological symptoms. - Urogenital: History of kidney stones, annual CT scans. - General: Denies any recent general health changes. Physical Exam General: Cooperative and healthy appearing Nutritional Appearance: Well nourished Orientation/consciousness: Patient oriented x3 Limitations: No limitations Head: Normal to inspection General: Appearance normal, both eyes and all related structures Neck: Normal visual inspection Chest: Normal palpation of entire chest wall Respiratory: N ormal respiratory effort Neurology: Patient oriented x3, reports numbness down the left leg. Results - Tests: Previous MRI showing degenerative disc disease at L5-S1 level. - Procedures: Past CT scans for kidney stones, MRI in 2021. Plan 1. Chronic Low Back Pain - NSAIDs and heating pads recommended. - Engage in a six-week course of physical therapy. - Assess symptom progression. - Lumbar Degenerative Disc Disease: M51.36 - Initiate physical therapy. - Consider MRI re-evaluation if conservative measures fail. - Herniated Disc C5-C6, Status Post-Surgery: M50.22 - Monitor for recurrence of symptoms. - Spinal Stenosis: M48.00 - Continue physical therapy and evaluate for further imaging as needed. Discussion Notes We discussed the patient's condition of chronic low back pain and associated numbness in the left leg, aggravating factors including certain physical activities, and the current management approaches. Given the patient's longstanding history of lower back issues and recent symptom exacerbation, conservative management, including NSAIDs, heating pads, and physical therapy, was advised. I explained that if symptoms persist despite these interventions, obtaining an MRI might be justified to ascertain further treatment direction. We also discussed the limitations and requirements for an MRI referral from a early childhood specialist, including the necessity to exhaust conservative measures first. The patient agreed to begin physical therapy and to notify me of any worsening symptoms, ensuring informed decision-making and understanding of the benefits and limitations of the current management strategy. Patient Instructions - Take pain relief medications such as ibuprofen as needed. - Use a heating pad regularly to alleviate back pain. - Attend physical therapy sessions for six weeks. - Avoid heavy lifting or any strenuous activities that worsen symptoms. - Notify me if the numbness in your leg gets worse or if there are no improvements in six weeks.
--- OUTSIDE RECORDS SUMMARY | 2024-10-10 13:17 | XMS_ITS ---
Author Organization [facility] Address [address] [place] [address] Care Team Providers Care Dental Appliance Fixer Name Role Phone Jonathan Crandall MD Primary Care Provider UnavailIsis Hoyos Unavailable [phone] David Mejía Unavailable [phone] Allergies No Known Allergies REASON FOR VISIT [...] 024 Encounters Encounter Location Date Provider Diagnosis [facility] [place] [address] [place] [address] 09/08/2023 David Mejía Tinea unguium B35.1 ; [...] symptoms of infection or any untoward reactions (86494) Progress Notes * Andrea OLIVEIRAOB:[birth year] (63 yo M)Acc No.[id number]:09/08/2023 Progress Notes Patient:?Tani Oliveira Provider:?David Mejía DPM :1960???Age:63 Y???Sex:Male Brian e:09/08/2023 Address:[address] [place] [address], [facility], [facility] Pcp:Jonathan Crandall MD Subjective: * Chief Complaints: [...] ?Exercise: yes, walking. ?Marital status: . 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 * Medications:?TakingFlomax 0. 4 MG Capsule 1 [...] symptoms of infection or any untoward reactions (82559).? * Procedure Codes:?41144 ACTIV E WOUND CARE/20 CM OR < [...] DPM Date:? 024 Generated for Freddy huffman/Tone/Bianca on:?10/10/2024 01:16 PM EDT History and Physical Notes * [...]
--- OUTSIDE RECORDS SUMMARY | 2024-10-10 13:17 | XMS_ITS ---
Author Organization [facility] Address [address] [place] [address] Care Team Providers Care Process Improvement Engineer Name Role Phone BLAINE VELÁSQUEZ Primary Care Provider Mario Whitlock Jr [phone] REASON FOR VISIT Patient presents today for [...] Problem Status W/U Status Risk Notes Problem 864225802 Screen for colon cancer (Z12.11) Active confirmed Problem 76126614990802073 halfway current use of diuretic (Z79.899) Active confirmed Vital Signs Temperature 99.3 degrees Fahrenheit 04/14/20 25 Blood pressure systolic 001 mm Hg 09/11/19 25 Blood pressure diastolic 01 mm Hg 025 Height 74 in 09/10/2024 Weight 273 lbs 09/10/2024 BMI 35.05 kg/m2 09/10/2024 Encounters Encounter Location Date Provider Diagnosis [facility] [address] [place] [address] 09/10/2024 Mario Brooks Jr Screen for colon cancer Z12.11 and halfway current use of diuretic Z79.899 Assessments Encounter Date Diagnosis (ICD Code) Assessment Notes Treatment Notes Treatment Clinical Notes Section Notes 09/10/2024 Screen for colon cancer (ICD-10 - Z12.11) We discussed colonoscopy today. We discussed risks and benefits of the procedure today. He understands these and agrees to proceed. This will be scheduled at his convenience. 09/10/2024 halfway current use of diuretic (ICD-10 - Z79.899) We discussed colonoscopy today. We discussed risks and benefits of the procedure today. He understands these and agrees to proceed. This will be scheduled at his convenience. Plan Of Treatment Future Test Test Name Order Date COLONOSCOPY 09/10/2024 Next Appt Details Follow Up: 1 Year, Reason: Provider Name:Mario toscano Jr, 11/23/2024 07:30:00 AM, [address] [place] [address], [id number], Progress Notes * TANI AYERSDOB: (64 yo M)Acc No.[id number]:09/10/2024 Progress Notes Patient:?SHAD AYERSJOHANNY Gomez Provider:?Mario Brooks MD :1960???Age:64 Y???Sex:Male Brian e:09/10/2024 Address:[address] [place] [address], [facility] Pcp:BLAINE VELÁSQUEZ Subjective: * Chief Complaints: * [...] in the past year??No,?Points?0,?Interpretation?Negative.?Miscellaneous:?Marital status: . 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 * Medications:?Taking Sildenaf il Citrate 100 MG [...] or edema.?PSYCH:?cognitive function intact.? Assessment: * Assessment: 1.?halfway current use of diuretic - Z79.899 (Primary)???2.?Screen [...] MD Date:?0 09/10/2024 Generated for Freddy huffman/Tone/eTransmitting on:?10/10/2024 01:17 PM EDT History and Physical Notes * [...]
--- OUTSIDE RECORDS SUMMARY | 2024-10-10 13:17 | XMS_ITS | Patient Health Record ---
Author Organization [facility] Address [address] [place] [address] Care Team Providers Care Steam And Power Superintendent Name Role Phone BLAINE VELÁSQUEZ Primary Care Provider Nguyễn Brooks Jr Mario Unavailable [phone] Reason For Referral No Information Medications Medication [...] Problem Status W/U Status Risk Notes Problem 742902049 Encounter for other preprocedural examination (Z01.818) Active confirmed Problem 485942860 Screen for colon cancer (Z12.11) Active confirmed Problem 33085112200324240 shelter current use of diuretic (Z79.899) Active confirmed Vital Signs Temperature 99.3 degrees Fahrenheit 09/10/2024 Blood pressure diastolic 01 mm Hg 09/10/2024 Height 74 in 09/10/2024 Blood pressure systolic 001 mm Hg 09/10/2024 Weight 273 lbs 09/10/2024 BMI 35.05 kg/m2 09/10/2024 Encounters Encounter Location Date Provider Diagnosis [facility] [address] [place] [address] 09/10/2024 Mario Nettleslenka Samaniego Screen for colon cancer Z12.11 and long term current use of diuretic Z79.899 Assessments Encounter Date Diagnosis (ICD Code) Assessment Notes Treatment Notes Treatment Clinical Notes Section Notes 09/10/2024 Screen for colon cancer (ICD-10 - Z12.11) We discussed colonoscopy today. We discussed risks and benefits of the procedure today. He understands these and agrees to proceed. This will be scheduled at his convenience. 09/10/2024 long term current use of diuretic (ICD-10 - Z79.899) We discussed colonoscopy today. We discussed risks and benefits of the procedure today. He understands these and agrees to proceed. This will be scheduled at his convenience. Plan Of Treatment Future Test Test Name Order Date COLONOSCOPY 10/19/2018 COLONOSCOPY 09/10/2024 Next Appt Details Provider Name:Mario toscano Jr, 11/23/2024 07:30:00 AM, [address] [place] [address] , [place], [place], [id number], Insurance Providers Payer Name Payer Address Payer Phone Subscriber Number Group Number Insured Name Patient Relationship to Insured Coverage Start Date Coverage End Date [facility] [address] [place] [address] [id number] MASSIEL [place] Self - patient is the insured Medical (General) History Medical History History ICD Code Nephrolithiasis LIZ/CPAP Hypertension Surgical History Surgery Date(Month/Year) tonsillectomy age 10 umbilical hernia repair ruptured disc in neck right knee arthritis/ meniscus repair left knee surgery total replacement 2015
--- OUTSIDE RECORDS SUMMARY | 2024-10-10 13:17 | XMS_ITS ---
Author Organization [facility] Address [address] [place] [address] Care Team Providers Care Dipping Machine Operator Name Role Phone Jonathan Crandall MD Primary Care Provider Isis Gross [phone] Cooney Encounters Encounter Location Date Provider Diagnosis [facility] [address] [place] [address] 08/24/2023 Isis Santos Plan Of Treatment No Information Progress Notes * Andrea OLIVEIRAOB:[birth year] (64 yo M)Acc No.[id number]:08/24/2023 Progress Note Patient:Tani WILSON Provider:?Isis Santos DPM :1960???Age:63 Y???Sex:Male Brian e:08/24/2023 Address:[address] [place], [place] [address] [id number] Pcp:Jonathan Crandall MD Subjective: * Chief Complaints: [...] Santos DPM Date:? Generated for Garretti armida/Tone/eTransmitting on:?10/10/2024 01:16 PM EDT
--- OUTSIDE RECORDS SUMMARY | 2024-10-10 13:17 | XMS_ITS ---
Author [facility] Address [address] [address] Care Team Providers Care Door To Door Fundraising Collector Name Role Phone Jonathan Crandall MD Primary Care Provider Unavaila Isis Kelly Unavailable [phone] David Mejía Unavailable [phone] Allergies No Known Allergies REASON FOR VISIT [...] 024 Encounters Encounter Location Date Provider Diagnosis [facility] [address] [place] [address] 08/24/2023 David Mejía Tinea unguium B35.1 ; [...] as necessary. Patient chooses, no pharmaceutical tx (29335) Progress Notes * Andrea OLIVEIRAOB:[birth year] (63 yo M)Acc No.[id number]:08/24/2023 Progress Note Patient:?Tani Oliveira Provider:?David Mejía DPM :1960???Age:63 Y???Sex:Male Brian e:08/24/2023 Address:[address] [place] [address], [facility] [place] Pcp:Jonathan Crandall MD Subjective: * Chief Complaints: [...] ?Exercise: yes, walking. ?Marital status: . 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 * Medications:?TakingamLODIPin e Besylate 5 MG Tablet [...] as necessary. Patient chooses, no pharmaceutical tx (22153).?Nail Avulsion:?Location?Total nail, TA.?Anesthesia?3cc of 1 percent Lidocaine/Epi [...] surgical procedures to prevent recurrence.? * Procedure Codes:?66254 DEBRI DE NAIL, 6 OR MORE, Modifiers: XS 39696 Avulsion Plate, [place]: [place] [address] X-RAY EXAM OF RIGHT FOOT 3V, Modifiers: [...] BABINSKI REFLEX: absent TINEL'S COMPRESSION: Negative tarsal seregi tao, joseph pedis, and medial calcaneal nerves [...]
--- OUTSIDE RECORDS SUMMARY | 2024-10-10 13:17 | XMS_ITS | Patient Health Record ---
Author Organization [facility] [place] Address [address] [place] [address] Care Team Providers Care Carving Machine Operator Name Role Phone Jonathan Crandall MD Primary Care Provider Eveline jett Angelo Santosen Unavailable [phone] Allergies No Known Allergies Reason For Referral [...] Coverage Start Date Coverage End Date [facility] 65 Medicare Preferred [address] [place] [address] [phone] [id number] Tani Hou Self - patient is the [...]
== END 2024-10-10 13:27 | disposition home or self-care (01) ==
LOC: HO.HMCHD 12:59
PROVIDERS: PCP Internal Medicine; Visit Provider Internal Medicine
DX: M54.50 Low back pain, unspecified (principal)

== ENCOUNTER → 2024-10-10 12:58 | Outpatient (BNVA) | payer MEDICARE, SELFPAY | PROVIDERS: PCP Internal Medicine; Visit Provider Internal Medicine | DX: M51.360 Other intervertebral disc degeneration, lumbar region with discogenic back pain only (principal); G89.29 Other chronic pain; M48.00 Spinal stenosis, site unspecified; Z98.890 Other specified postprocedural states | CPT/HCPCS: 96127; 99212 ==

== ENCOUNTER 2024-11-23 06:08 | Day surgery (SDC) | payer MEDICARE, SELFPAY ==
--- OUTSIDE RECORDS SUMMARY | 2024-10-02 14:06 | XMS_ITS ---
Author Organization [facility] Address [address] [place] [address] Care Team Providers Care Shearing Supervisor Name Role Phone Jonathan Crandall MD Primary Care Provider UnavailIsis Hoyos Unavailable [phone] David Mejía Unavailable [phone] Allergies No Known Allergies REASON FOR VISIT [...] 024 Encounters Encounter Location Date Provider Diagnosis [facility] [place] [address] [place] [address] 09/08/2023 David Mejía Tinea unguium B35.1 ; [...] symptoms of infection or any untoward reactions (88559) Progress Notes * Andrea OLIVEIRAOB:[birth year] (63 yo M)Acc No.[id number]:09/08/2023 Progress Notes Patient:?Tani Oliveira Provider:?David Mejía DPM :1960???Age:63 Y???Sex:Male Brian e:09/08/2023 Address:[address] [place] [address], [facility], [facility] Pcp:Jonathan Crandall MD Subjective: * Chief Complaints: [...] ?Exercise: yes, walking. ?Marital status: . 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 * Medications:?TakingFlomax 0. 4 MG Capsule 1 [...] symptoms of infection or any untoward reactions (38786).? * Procedure Codes:?52288 ACTIV E WOUND CARE/20 CM OR < [...] DPM Date:? 024 Generated for Freddy huffman/Tone/Bianca on:?10/02/2024 02:05 PM EDT History and Physical Notes * [...]
--- OUTSIDE RECORDS SUMMARY | 2024-10-02 14:06 | XMS_ITS ---
Author Organization [facility] Address [address] [place] [address] Care Team Providers Care Columnist Name Role Phone Jonathan Crandall MD Primary Care Provider Isis Gross [phone] Cooney Encounters Encounter Location Date Provider Diagnosis [facility] [address] [place] [address] 08/24/2023 Isis Santos Plan Of Treatment No Information Progress Notes * Andrea OLIVEIRAOB:[birth year] (64 yo M)Acc No.[id number]:08/24/2023 Progress Note Patient:Tani WILSON Provider:?Isis Santos DPM :1960???Age:63 Y???Sex:Male Brian e:08/24/2023 Address:[address] [place], [place] [address] Pcp:Jonathan Crandall MD Subjective: * Chief Complaints: * ???1. Dr Conoey. * Medical History:? Objective: * Vitals:? Assessment: Plan: * Treatment: * Images: * The named appointment provid er may or may not be the originator of this progress note, and it is not deemed complete until electronically signed by the appointment provider. Sign off status: Pending * Provider:?Isis Santos DPM Date:? Generated for Garretti armida/Tone/eTransmitting on:?10/02/2024 02:06 PM EDT
--- OUTSIDE RECORDS SUMMARY | 2024-10-02 14:06 | XMS_ITS ---
[facility] Address [address] [place] [address] Care Team Providers Care Retail Support Associate Name Role Phone Jonathan Crandall MD Primary Care Provider Unavaila Isis Kelly Unavailable [phone] David Mejía Unavailable [phone] Allergies No Known Allergies REASON FOR VISIT [...] 024 Encounters Encounter Location Date Provider Diagnosis [facility] [place] [address] [place] [address] 08/24/2023 David Mejía Tinea unguium B35.1 ; [...] as necessary. Patient chooses, no pharmaceutical tx (96108) Progress Notes * Andrea OLIVEIRAOB:[birth year] (63 yo M)Acc No.[id number]:08/24/2023 Progress Note Patient:?Tani Oliveira Provider:?David Mejía DPM :1960???Age:63 Y???Sex:Male Brian e:08/24/2023 Address:[address] [place] [address], [facility] Pcp:Jonathan Crandall MD Subjective: * Chief Complaints: [...] ?Exercise: yes, walking. ?Marital status: . 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 * Medications:?TakingamLODIPin e Besylate 5 MG Tablet [...] as necessary. Patient chooses, no pharmaceutical tx (56500).?Nail Avulsion:?Location?Total nail, TA.?Anesthesia?3cc of 1 percent Lidocaine/Epi [...] surgical procedures to prevent recurrence.? * Procedure Codes:?40381 DEBRI DE NAIL, 6 OR MORE, Modifiers: XS 90227 Avulsion Plate, [place]: [place] [address] X-RAY EXAM OF RIGHT FOOT 3V, Modifiers: [...] Date:? 024 Generated for Freddy huffman/Tone/Bianca on:?10/02/2024 02:06 PM EDT History and Physical Notes * [...]
--- OUTSIDE RECORDS SUMMARY | 2024-10-02 14:07 | XMS_ITS | Patient Health Record ---
Author Organization [facility] Address [address] [place] [address] Care Team Providers Care Patient Resource Coordinator Name Role Phone BLAINE VELÁSQUEZ Primary Care Provider Nguyễn Brooks Jr Mario Unavailable [phone] Reason For Referral No Information Medications Medication SIG (Take, Route, Frequency, Duration) Notes Start Date End Date Status Lipo-Flavonoid Plus Active hydroCHLOROthiazide 12.5 MG 1 capsule in the morning Orally Once a day Active Tamsulosin HCl 0.4 MG 1 capsule Orally Once a day Active Doxazosin Mesylate 4 MG 1 tablet Orally Once a day Active Allopurinol 100 MG TAKE ONE TABLET BY MOUTH EVERY DAY Oral for 30 Active Ibuprofen 200 MG 1 tablet with food or milk as needed Orally prn Active Sildenafil Citrate 100 MG 1 tablet as ne eded Orally Once a day as needed Active amLODIPine Besylate 5 MG 1 tablet Orally Once a day for 30 day(s) Active Losartan Potassium 100 MG 1 tablet Orall y Once a day Active Immunizations Vaccine Route Administration Date Status Comme nts Influenza Unknown 01/28/2018 Administered Influenza Unknown 02/15/2024 Administered Social History Tobacco Use: Social History [...] Problem Status W/U Status Risk Notes Problem 006994254 Encounter for other preprocedural examination (Z01.818) Active confirmed Problem 580716308 Screen for colon cancer (Z12.11) Active confirmed Problem [id number] 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) Active confirmed Vital Signs Temperature 99.3 degrees Fahrenheit 09/10/2024 Blood pressure diastolic 01 mm Hg 09/10/2024 Height 74 in 09/10/2024 Blood pressure systolic 001 mm Hg 09/10/2024 Weight 273 lbs 09/10/2024 BMI 35.05 kg/m2 09/10/2024 Encounters Encounter Location Date Provider Diagnosis [facility] [address] [place] [address] 09/10/2024 Mario Nettleslenka Samaniego Screen for colon cancer Z12.11 and [facility] current use of diuretic Z79.899 Assessments Encounter Date Diagnosis (ICD Code) Assessment Notes Treatment Notes Treatment Clinical Notes Section Notes 09/10/2024 Screen for colon cancer (ICD-10 - Z12.11) We discussed colonoscopy today. We discussed risks and benefits of the procedure today. He understands these and agrees to proceed. This will be scheduled at his convenience. 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 We discussed risks and benefits of the procedure today. He understands these and agrees to proceed. This will be scheduled at his convenience. Plan Of Treatment Future Test Test Name Order Date COLONOSCOPY 10/19/2018 COLONOSCOPY 09/10/2024 Next Appt Details Provider Name:Mario toscano Jr, 11/23/2024 07:30:00 AM, [address] [place] [address] , [place], [place], [id number], Insurance Providers Payer Name Payer Address Payer Phone Subscriber Number Group Number Insured Name Patient Relationship to Insured Coverage Start Date Coverage End Date [facility] [address] [place] [address] [phone] [id number] MASSIEL BIRMINGHAM Self - patient is the insured Medical (General) History Medical History History ICD Code Nephrolithiasis LIZ/CPAP Hypertension Surgical History Surgery Date(Month/Year) tonsillectomy age 10 umbilical hernia repair ruptured disc in neck right knee arthritis/ meniscus repair left knee surgery total replacement 2015
--- OUTSIDE RECORDS SUMMARY | 2024-10-02 14:07 | XMS_ITS | Patient Health Record ---
Author Organization [facility] [place] Address [address] [facility] [place] [address] Care Team Providers Care Back Office Medical Assistant Name Role Phone Jonathan Crandall MD Primary Care Provider Eveline jett Angelo Santosen Unavailable [phone] Allergies No Known Allergies Reason For Referral [...] Insured Coverage Start Date Coverage End Date [facility] 65 Medicare Preferred [address] [place] [address] [id number] Tani Hou Self - patient is the [...]
--- OUTSIDE RECORDS SUMMARY | 2024-10-02 14:07 | XMS_ITS ---
Author Organization [facility] Address [address] [place] [address] Care Team Providers Care Mines Inspector Name Role Phone BLAINE VELÁSQUEZ Primary Care Provider Mario Whitlock Jr REASON FOR VISIT Patient presents today for a recall colonoscopy Medications Medication SIG (Take, Route, Frequency, Duration) Notes Start Date End Date Status Allopurinol 100 MG TAKE ONE TABLET BY MOUTH EVERY DAY Oral for 30 Active Ibuprofen 200 MG 1 tablet with food or milk as needed Orally prn Active Sildenafil Citrate 100 MG 1 tablet as ne eded Orally Once a day as needed Active amLODIPine Besylate 5 MG 1 tablet Orally Once a day for 30 day(s) Active Lipo-Flavonoid Plus Active hydroCHLOROthiazide 12.5 MG 1 capsule in the morning Orally Once a day Active Tamsulosin HCl 0.4 MG 1 capsule Orally Once a day Active Doxazosin Mesylate 4 MG 1 tablet Orally Once a day Active Losartan Potassium 100 MG 1 tablet Orall y Once a day Active Social History Tobacco Use: Social History [...] Problem Status W/U Status Risk Notes Problem [id number] Screen for colon cancer (Z12.11) Active confirmed 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) Active confirmed Vital Signs Temperature 99.3 degrees Fahrenheit 04/14/20 25 Blood pressure systolic 001 mm Hg 09/11/19 25 Blood pressure diastolic 01 mm Hg 025 Height 74 in 09/10/2024 Weight 273 lbs 09/10/2024 BMI 35.05 kg/m2 09/10/2024 Encounters Encounter Location Date Provider Diagnosis [facility] [address] [place] [address] 09/10/2024 Mario Brooks Jr Screen for colon cancer Z12.11 and shelter current use of diuretic Z79.899 Assessments Encounter Date Diagnosis (ICD Code) Assessment Notes Treatment Notes Treatment Clinical Notes Section Notes 09/10/2024 Screen for colon cancer (ICD-10 - Z12.11) We discussed colonoscopy today. We discussed risks and benefits of the procedure today. He understands these and agrees to proceed. This will be scheduled at his convenience. 09/10/2024 shelter current use of diuretic (ICD-10 - Z79.899) We discussed colonoscopy today. We discussed risks and benefits of the procedure today. He understands these and agrees to proceed. This will be scheduled at his convenience. Plan Of Treatment Future Test Test Name Order Date COLONOSCOPY 09/10/2024 Next Appt Details Follow Up: 1 Year, Reason: Provider Name:Mario toscano Jr, 11/23/2024 07:30:00 AM, [address] [place] [address], [id number], Progress Notes * TANI AYERSDOB: (64 yo M)Acc No.[id number]:09/10/2024 Progress Notes Patient:?SHAD AYERSJOHANNY Gomez Provider:?Mario Brooks MD :1960???Age:64 Y???Sex:Male Brian e:09/10/2024 Address:[address] [place] [address], [facility] Pcp:BLAINE VELÁSQUEZ Subjective: * Chief Complaints: * ???1. Patient presents today for a recall colonoscopy. * HPI: ???New symptom(s):? Tani is a pleasant 64-year-old man seen today in consultation for his preoperative colonoscopy visit. He has no complaints of rectal bleeding or change in his bowel habits. Bowel movements are normal. Colonoscopy in 2019 showed a tubular adenoma and 5-year follow-up is recommended. * ROS:?General/Constitutional:?Change in appetite?denies.?Fatigue?denies.?ENT:?Patient denies?difficulty swallowing.?Respiratory:?Patient denies?shortness of breath.?Cardiovascular:?Patient denies?chest pain.?Gastrointestinal:?Comments?See HPI for details.?Genitourinary:?Difficulty urinating?denies.?Incontinence?denies.?Musculoskeletal:?Patient denies?muscle aches.?Skin:?Patient denies?pruritis.?Neurologic:?Patient denies?low back pain.?Psychiatric:?Patient denies?mental or physical abuse.? * Medical History:?Nephrolithi asis, LIZ/CPAP, Hypertension. * Surgical History:?left knee surgery total replacement 2016, right knee arthritis/ meniscus repair , ruptured disc in neck , umbilical hernia repair , tonsillectomy age 10. * Family History:?Father: dece ased, stomach cancer?lung cancer.?Mother: , diagnosed with HTN (hypertension).? no known hx of colon ca,polyps or liver ds. * Social History:?Tobacco Use:?Tobacco Use/Smoking?Patient is a?nonsmoker.?Drugs/Alcohol:?Alcohol Screen?Did you have a drink containing alcohol in the past year??No,?Points?0,?Interpretation?Negative.?Miscellaneous:?Marital status: . 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 * Medications:?Taking Sildenaf il Citrate 100 MG Tablet 1 tablet as needed Orally Once a day , Notes to Pharmacist: as needed, Taking Lipo-Flavonoid Plus , Taking hydroCHLOROthiazide 12.5 MG Capsule 1 capsule in the morning Orally Once a day , Taking Tamsulosin HCl 0.4 MG Capsule 1 capsule Orally Once a day , Taking Doxazosin Mesylate 4 MG Tablet 1 tablet Orally Once a day , Taking Losartan Potassium 100 MG Tablet 1 tablet Orally Once a day , Taking amLODIPine Besylate 5 MG Tablet 1 tablet Orally Once a day , Taking Allopurinol 100 MG Tablet TAKE ONE TABLET BY MOUTH EVERY DAY Oral , Taking Ibuprofen 200 MG Tablet 1 tablet with food or milk as needed Orally prn , Discontinued Lisinopril 20 MG Tablet 1 tablet Orally Once a day , Medication List reviewed and reconciled with the patient Objective: * Vitals:?Wt:273lbs, Ht: 74 in , BMI:35.05Index, BP:001/01mm Hg, Temp:99.3, Wt-k.83. * Examination: ???General Examination: ?GENERAL APPEARANCE:?in no acute distress.?HEAD:?normocephalic.?EYES:?sclera non-icteric.?ORAL CAVITY:?mucosa moist.?NECK/THYROID:?no lymphadenopathy.?SKIN:?anicteric.?HEART:?S1, S2 normal, no murmurs.?LUNGS:?clear to auscultation bilaterally.?CHEST:?normal shape and expansion.?ABDOMEN:?soft, nontender, nondistended, bowel sounds present, no organomegaly .?EXTREMITIES:?no clubbing, cyanosis, or edema.?PSYCH:?cognitive function intact.? 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 We discussed colonoscopy tod ay. We discussed risks and benefits of the procedure today. He understands these and agrees to proceed. This will be scheduled at his convenience. Plan: * Treatment: * Procedure Codes:?3017F COLOR ECTAL CA SCREEN DOC REV, G9903 Pt scrn tbco id as non user, G9744 PATIENT NOT ELIG D/T ACTIVE DX HTN * Preventive Medicine:? ??Counseling:?Care goal follow-up plan:?Above Normal BMI Follow-up?Dietary management education, guidance, and counseling,?BMI management provided?Yes.? ??Screenings:?Fall Risk Screening?Fall Risk Assessment:?No falls in the past year,?Screening:?No falls in the past year,?Assessment:?Not performed, no reason specified,?Plan of Care:?Not documented, no reason specified.? * Follow Up:?1 Year * * Sign off status: Completed true * Provider:?Mario Brooks MD Date:?0 09/10/2024 Generated for Freddy huffman/Tone/eTransmitting on:?10/02/2024 02:06 PM EDT History and Physical Notes * HPI (History of Present Illness) Category Sub-Category Detail Notes Category Not es New symptom(s) Tani is a p leasant 64-year-old man seen today in consultation for his preoperative colonoscopy visit. He has no complaints of rectal bleeding or change in his bowel habits. Bowel movements are normal. Colonoscopy in 2019 showed a tubular adenoma and 5-year follow-up is recommended. Examination Category Sub-Category Detail Notes Category Not es General Examination GENERAL APPEARANCE: in no acute di stress HEAD: normocephalic EYES: sclera non-icteric NECK/THYROID: no lymphadenopathy HEART: S1, S2 normal, no mu rmurs CHEST: normal shape and exp ansion LUNGS: clear to auscultatio n bilaterally ABDOMEN: soft, nontender, non distended, bowel sounds present, no organomegaly SKIN: anicteric EXTREMITIES: no clubbing, cyanosi s, or edema PSYCH: cognitive function i ntact ORAL CAVITY: mucosa moist
[2024-11-21 09:04] VITALS: BMI 35.0
--- NOTE | 2024-11-21 14:08 | HO.ANESPROP2 ---
Documented by User: Lucila Bass NP 11/21/24 14:08 HPI - Anesthesia Eval Consult details Narrative: 64yo M for Colonoscopy PMFSH Active Problems Active Problems: All Active Problems Primary osteoarthritis of right knee (Acute) Obstructive sleep apnea (Acute) Hypertension (Acute) Past Medical History Medical History Nephrolithiasis Osteoarthritis Obstructive sleep apnea Hypertension Family History Family History Mother Neuropathy Father Stomach cancer Surgical History Surgical History Hx of tonsillectomy Hx of umbilical hernia repair Hx of cervical discectomy History of colonoscopy (08/03/19) H/O right knee surgery History of left knee surgery History of total left knee replacement (~2015) Social History Social History Housing: House Patient Tobacco Use Status: Never used Tobacco e-Cigarette/Vaping Use: Never Used Use of substances other than those prescribed or required for medical reasons: No Have you been hit, kicked, punched, or otherwise hurt by someone within the past year? If so, by whom?: No Are you DNR?: No Advance Directives: No Advance Directives Information Provided: Yes service: No Current occupational status: retired Current occupation: [employer] - RIght Handed Cognitive needs: No Hearing needs: Yes (bilateral ) Vision needs: Yes (reading glasses) Meds Allergies Allergy/AdvReac Type Severity Reaction Status Date / Time No Known Allergies (No Known Allergy Verified 11/23/24 07:04 Allergies*) Home Medications ?Medication ?Instructions ?Recorded ?Confirmed ?Last Taken ?Type hydrochlorothiazide 12.5 mg capsule 12.5 mg PO DAILY 09/05/24 11/23/24 Unknown History ibuprofen 200 mg tablet 200 mg PO Q6H PRN Pain 11/21/24 11/23/24 11/16/24 History sildenafil 100 mg tablet 100 mg PO DAILY PRN Erectile 11/21/24 11/21/24 Unknown History Dysfunction Exam Height,Weight and Vital Signs: Height 6 ft 2 in Weight 123.831 kg Assessment and Plan Assessment Anesthesia Assessment: Chart Reviewed Documented by User: Martín Ford MD 11/23/24 07:24 PMFSH Past Medical History Medical History Nephrolithiasis Osteoarthritis Obstructive sleep apnea Hypertension Cognitive capacity: good. no cognitive issues Functional capacity: independent ambulation Family History Family History Mother Neuropathy Father Stomach cancer Family history of problems with anesthesia: No Surgical History Surgical History Hx of tonsillectomy Hx of umbilical hernia repair Hx of cervical discectomy History of colonoscopy (08/03/19) H/O right knee surgery History of left knee surgery History of total left knee replacement (~2015) History of Problems with Anesthesia: No Social History Social History Housing: House Patient Tobacco Use Status: Never used Tobacco e-Cigarette/Vaping Use: Never Used Use of substances other than those prescribed or required for medical reasons: No Have you been hit, kicked, punched, or otherwise hurt by someone within the past year? If so, by whom?: No Are you DNR?: No Advance Directives: No Advance Directives Information Provided: Yes service: No Current occupational status: retired Current occupation: [employer] - RIght Handed Cognitive needs: No Hearing needs: Yes (bilateral ) Vision needs: Yes (reading glasses) Meds Allergies Allergy/AdvReac Type Severity Reaction Status Date / Time No Known Allergies (No Known Allergy Verified 11/23/24 07:04 Allergies*) Home Medications ?Medication ?Instructions ?Recorded ?Confirmed ?Last Taken ?Type hydrochlorothiazide 12.5 mg capsule 12.5 mg PO DAILY 09/05/24 11/23/24 Unknown History ibuprofen 200 mg tablet 200 mg PO Q6H PRN Pain 11/21/24 11/23/24 11/16/24 History sildenafil 100 mg tablet 100 mg PO DAILY PRN Erectile 11/21/24 11/21/24 Unknown History Dysfunction Exam Exam Date and Time: 11/23/2024 Airway TM Dist: >3cm Neck ROM: Full Loose/Missing/Broken Teeth: No Heart: rrr Lungs: cta Assessment and Plan Final Anesthetic Review Family History of Problems with Anesthesia: No History of Problems with Anesthesia: No NPO: Yes ASA Class: II Final Preanesthetic Review: No Changes in Pt Med Stat, Meds/Allgs Chart Reviewed, Consent Obtained/Reviewed and Anes Risks/Benef Reviewed Patient Risk: Intermediate Procedure Risk: Low Anesthetic Plan Anesthetic Plan: MAC: Disposition: Standard PACU
[2024-11-23 06:47] VITALS: BMI 34.7
[2024-11-23 06:52] VITALS: BP 168/97; PULSE 82; RESP 17; TEMP 36.8; O2SAT 98
[2024-11-23] MEDS: Lactated Ringers 1,000 ML 100 ML IVCONT (07:00)
--- NOTE | 2024-11-23 07:34 | MHC.SHP ---
Pre-Procedural Eval Section A - 24 Hr Update-Section A only Date of Service: 11/23/24 Section B - Complete if H&P > 30 days Chief Complaint: Encounter for screening for malignant neoplasm of Details of Present Illness: see H&P no changes Relevant Family History (Specify if Yes): No Relevant Social History: None Present Medications: see Short Stay Collaborative assessment Medical History: No relevant PMH History of Previous Operations: No relevant previous surgery Allergies: Allergies Allergy/AdvReac Type Severity Reaction Status Date / Time No Known Allergies (No Known Allergy Verified 11/23/24 07:04 Allergies*) Review of Systems Sugical H&P ROS: Negative: Constitution, Cardiovascular, Respiratory, Neurological, Psychiatric, Hem-Onc, Allergic/Immunologic, Gastrointestinal, Genitourinary, Musculoskeletal, Integumentary, Endocrine and Eyes/Ears/Nose/Throat Exam Surgical H&P Exam: Normal: HEENT, Normal: Heart, Normal: Lungs, Normal: Extremities, Normal: Abdomen, Normal: Skin and Normal: Neurological Plan Diagnosis/Plan: Unchanged I have reviewed the history and physical and performed a pertinent physical examination on my patient. No changes have occurred unless specified. Time Spent With Patient Time: Total time managing care of this patient today ____ minutes.
[2024-11-23 08:10] VITALS: BP 142/64; PULSE 63; RESP 18; TEMP 36.4; O2SAT 95
--- NOTE | 2024-11-23 08:17 | P.BOP_ITS ---
Brief Operative Note Date of Service: 11/23/24 Pre-op diagnosis: colon polyps Post-op diagnosis: same Procedure: colonosocpy Surgeon: Mario Brooks MD Was an Channel Account Manager used for this Procedure?: No Estimated blood loss (mL): 0 Pathology: none sent Condition: stable Disposition: PACU
[2024-11-23 08:25] VITALS: BP 139/100; PULSE 64; RESP 18; TEMP 36.4; O2SAT 95
[2024-11-23 08:33] VITALS: BP 147/77; PULSE 64; RESP 16; TEMP 36.2; O2SAT 97
--- NOTE | 2024-11-23 08:40 | OP_ITS ---
DATE OF SERVICE: 11/23/2024 SURGEON: Mario Brooks MD INDICATIONS: Colon cancer screening and prior history of adenomatous colon polyps. PREOPERATIVE DIAGNOSIS: POSTOPERATIVE DIAGNOSIS: PROCEDURE PERFORMED: Colonoscopy to the terminal ileum. ESTIMATED BLOOD LOSS: COMPLICATIONS: ANESTHESIA: Medications, monitored anesthesia care. ASSISTANTS: SPECIMENS: DESCRIPTION OF PROCEDURE: A history and physical was performed. The risks and benefits of the procedure were explained to the patient. Informed consent was obtained. The patient was placed in the left lateral decubitus position. A digital rectal exam was performed and was found to be normal. The Olympus pediatric video colonoscope was introduced into the rectum and advanced to the cecum. The cecum was identified by transillumination, palpation, and identification of ileocecal valve. Examination was performed. The scope was removed. He tolerated the procedure well and was taken to recovery room in stable condition. FINDINGS: The terminal ileum was examined and appeared normal. The visualized colonic mucosa was normal. The quality of prep was good. No polyps were identified. There was mild sigmoid diverticulosis. Retroflexed examination showed small internal hemorrhoids. IMPRESSION: Normal colonoscopy. RECOMMENDATION: 1. Follow up as needed. 2. Repeat colonoscopy is recommended in 10 years for average-risk individuals. MD GLEN Reyes/JERMAINE / [id number]
== END 2024-11-23 08:53 | disposition home or self-care (01) ==
PROVIDERS: PCP Internal Medicine; Visit Provider Internal Medicine Gastroenterology
PROC: 0DJD8ZZ Inspection of Lower Intestinal Tract, Via Natural or Artificial Opening Endoscopic (ICD-10-PCS; CPT 45378; principal; 2024-11-23 07:30)
DX: Z12.11 Encounter for screening for malignant neoplasm of colon (principal); K57.30 Diverticulosis of large intestine without perforation or abscess without bleeding; K64.0 First degree hemorrhoids; Z86.0101 Personal history of adenomatous and serrated colon polyps; I10 Essential (primary) hypertension; N40.0 Benign prostatic hyperplasia without lower urinary tract symptoms; G47.33 Obstructive sleep apnea (adult) (pediatric); Z79.899 Other long term (current) drug therapy
CPT/HCPCS: G0105; J2003; J2704; J3010

== ENCOUNTER 2024-11-26 07:43 | Outpatient (RCR) | payer MEDICARE, SELFPAY ==
--- NOTE | 2024-10-29 10:08 | MHC.PT.EP ---
[facility] [place] Office [place] Office [place] Office [address] Sylwia Sotelo [address] [phone] F: [phone] F: [phone] F: [phone] F: [phone] Physical Therapy Plan of Care Date of Evaluation: 10/29/24 Date of Surgery: NA Diagnosis: Low back pain Assessment: Tani is a 64 year old male who is referred to PT for low back pain . He reports of having back pain for several years however his symptoms have been getting worse over he last 1 year. He reports of having increased back pain and numbness/tingling in B LE. On PT examination he presents with back pain varying from 2-8/10, no TTP, back pain with bending and walking, presented with good lumbar ROM, decreased B LE strength and core strength and altered posture. Tani has started new pain meds which has helped him significantly with his pain. He lives with his family and is independent with all ADLS but has pain with bending activities. He is retired. He would benefit from skilled PT to address the aforementioned impairments and improve tolerance to functional activities. Frequency and Duration: The patient will be seen 2/week for 5 weeks Short Term Goals: 1. Pt will demonstrate initiation of HEP in 2 weeks 2. Pt will demonstrate good awareness of posture and body mechanics and will be able to assess and self correct every 30 mins in 3 weeks Alf Goals: 1. Pt will demonstrate an increase in muscle strength by 1 grade which will enable him to walk and stand without pain in 5 weeks. 2. Pt will be independent with all HEP for symptom management and maintenance following d/c in 5 weeks. Treatment Plan: Modalities to reduce pain, spasms and effusion. Manual therapy to restore motion and function. Therapeutic exercise to improve strength and flexibility. Neuromuscular re-education for posture and balance. Therapeutic activities to return to functional activities of daily living. Electronically signed by: Gris Arenas PT DPT Please sign and return to therapist. Thank you for your referral.
--- NOTE | 2024-12-18 13:13 | MHC.PT.DC ---
[facility] [place] [facility] [place] [facility] [place] [facility] [address] Sylwia Sotelo [address] [phone] F: [phone] F: [phone] F: [phone] F: [phone] Physical Therapy Discharge Report Diagnosis: Low back pain Date of Surgery: NA Date of Evaluation: 10/29/24 Date of Discharge: 12/18/24 Treatments to Date: 8 Cancellations to Date: 0 No Shows to Date: 0 Discharge Status: Independent with HEP Discharge Summary: Tani attended 8 PT visits and then was recommended to continue PT 1/week. He however did not make any more appointments after that. During his last appointment he was independent with all HEP. He has not made any appointments in over 3 weeks. He is therefore being d/c from PT. Electronically signed by: Gris Arenas PT DPT Please sign and return to therapist. Thank you for your referral.
== END 2024-12-18 13:14 | disposition home or self-care (01) ==
LOC: HO.PT 07:43
PROVIDERS: PCP Internal Medicine; Visit Provider Internal Medicine
DX: M54.50 Low back pain, unspecified (principal)
CPT/HCPCS: 95992; 97110; 97112; 97161; 97530

== ENCOUNTER 2024-12-05 12:46 | Outpatient (AMB) | payer MEDICARE, SELFPAY ==
--- OUTSIDE RECORDS SUMMARY | 2023-08-24 08:45 | XMS_ITS ---
Author Organization [facility] Address [address] [place] [address] Care Team Providers Care Hot Knife Foxing Cutter Name Role Phone Jonathan Crandall MD Primary Care Provider Isis Gross [phone] Cooney Encounters Encounter Location Date Provider Diagnosis [facility] [address] [place] [address] 08/24/2023 Isis Santos Plan Of Treatment No Information Progress Notes * Andrea OLIVEIRAOB:[birth year] (64 yo M)Acc No.[id number]:08/24/2023 Progress Note Patient: Tani ENRIQUEZ Provider: Shaji Santos DPM :1960 A ge:63 Y S ex:Male Date:08/24/2023 Address:[address] [place], [place] [address], [place] Pcp:Jonathan Crandall MD Subjective: * Chief Complaints: * [address] Cooney. * Medical History: Objective: * Vitals: Assessment: Plan: * Treatment: * Images: * The named appointment provid er may or may not be the originator of this progress note, and it is not deemed complete until electronically signed by the appointment provider. Sign off status: Pending * Provider: Shaji Santos DPM Date: 0 08/24/2023 Generated for Printi ng/Falizg/eTransmitting on: 0 12/05/2024 01:40 PM EDT
--- OUTSIDE RECORDS SUMMARY | 2024-11-23 03:30 | XMS_ITS ---
Author Organization [facility] Address [address] [place] [address] Care Team Providers Care Mmd Unit Teacher Name Role Phone BLAINE VELÁSQUEZ Primary Care Provider Mario Whitlock Jr [phone] REASON FOR VISIT screening Encounters Encounter Location Date Provider Diagnosis [facility] [place] [address] [place], [place] [phone] 11/23/2024 Mario Brooks Jr Colon cancer screening Z12.11 and History of adenomatous polyp of colon Z86.0101 Assessments Encounter Date Diagnosis (ICD Code) Assessment Notes Treatment Notes Treatment Clinical Notes Section Notes 11/23/2024 Colon cancer screening (ICD-10 - Z12.11) 11/23/2024 History of adenomatous polyp of colon (ICD-10 - Z86.0101) Plan Of Treatment No Information Progress Notes * MASSIEL AYERSDOB: (64 yo M)Acc No.[id number]:11/23/2024 COLON WITH MAC Patient: Anita MASSIEL GRANDA Provider: Citlaly Brooks MD :1960 A ge:64 Y S ex:Male Date:11/23/2024 Address:[address] [place], [place] [id number] Pcp:BLAINE VELÁSQUEZ Subjective: * Chief Complaints: * [...] 0 11/23/2024 Generated for Freddy huffman/Tone/Leesaitting on: 0 12/05/2024 01:39 PM EDT
--- NOTE | 2024-12-05 09:11 | MHC.PC.OV ---
Vital Signs 12/05/24 13:01 Height 6 ft 2 in Weight 271 lb BMI 34.8 BP 138/80 Blood Pressure Location Lt brachial Position Sitting Pulse 61 Pulse Source Pulse Oximeter Temp 98.2 F Temp Source Axillary Pulse Oximetry (%) 99 Oxygen Delivery Method Room Air Intake Visit Reasons: F/u after PT for back Taffy Candy Maker Required: No Accompanied by: Self / Same As Patient Allergies No Known Allergies (No Known Allergies*) Allergy (Verified 12/05/24 09:11) Tobacco use date assessed: 12/05/24 Last assessed Fall Risk: 12/05/24 Dental Screening Dental Screen Date: 12/05/24 Did you have a dental visit in the last 12 months?: Yes Did you have a dental problem in the last 6 months where you did not have access to dental care?: No [facility] Medical History (Updated 12/05/24 @ 13:25 by Montrell Mcnamara MD) Benign prostate hyperplasia Nephrolithiasis Osteoarthritis Obstructive sleep apnea Hypertension Surgical History Hx of tonsillectomy Hx of umbilical hernia repair Hx of cervical discectomy History of colonoscopy (08/03/19) H/O right knee surgery History of left knee surgery History of total left knee replacement (~2015) Family History Mother Neuropathy Father Stomach cancer Social History Housing: House Patient Tobacco Use Status: Never used Tobacco e-Cigarette/Vaping Use: Never Used service: No Current occupational status: retired Current occupation: [employer] R[employer] Handed Cognitive needs: No Hearing needs: Yes (bilateral ) Vision needs: Yes (reading glasses) Questionnaire PHQ-9 Over the last 2 weeks, how often have you been bothered by any of the following problems? 1. Little interest or pleasure in doing things: not at all 2. Feeling down, depressed, or hopeless: not at all 3. Trouble falling or staying asleep, or sleeping too much: not at all 4. Feeling tired or having little energy: not at all 5. Poor appetite or overeating: not at all 6. Feeling bad about yourself - or that you are a failure or have let yourself or your family down: not at all 7. Trouble concentrating on things, such as reading the newspaper or watching television: not at all 8. Moving or speaking so slowly that other people could have noticed. Or the opposite - being so fidgety or restless that you have been moving around a lot more than usual: not at all 9. Thoughts that you would be better off or of hurting yourself in some way: not at all Total score: 0 Source: Developed by Drs. Jason Palm, Sarah May, Neo Shore and colleagues, with an educational arlen from [employer]. Thrive Questionnaire Date Thrive assessed: 12/05/24 I am a: Patient Within the past 12 months, did the food you bought not last and you didn't have the money to get more?: Never true Within the past 12 months, did you worry whether your food would run out before you got money to buy more?: Never true Do you have trouble paying for medicines?: No Do you have trouble getting transportation to medical appointments?: No Do you have trouble paying your heating and electricity bill?: No Do you have trouble taking care of your child, family member or friend?: No Do you have trouble with day-to-day activities such as bathing, preparing meals, shopping, managing finances, etc.?: No Are you currently unemployed and looking for a job?: No Are you interested in more education?: No THRIVE Score: 0 AUDIT C Alcohol Use Questionnaire (AUDIT-C) 1. How often do you have a drink containing alcohol?: Monthly or less 2. How many drinks containing alcohol do you have on a typical day when you are drinking?: 1 or 2 3. How often do you have six or more drinks on one occasion?: Less than monthly Total Score: 2 MAYI-7 AMB Questionnaire MAYI-7 Date MAYI - 7 assessed: 12/05/24 Feeling nervous, anxious, or on edge: 0 = Not at all Not being able to stop or control worryin = Not at all Worrying too much about different things: 0 = Not at all Trouble relaxin = Not at all Being so restless that it is hard to sit still: 0 = Not at all Becoming easily annoyed or irritable: 0 = Not at all Feeling afraid as if something awful might happen: 0 = Not at all Total MAYI-7 score (0-4 normal; 5-9 mild; 10-14 moderate; 15-21 severe): 0 Source: Developed by Drs. Jason Palm, Sarah May, Neo Shore and colleagues, with an educational arlen from [employer]. Physical exam (Primary Care) Vital Signs: Last Vital Signs Temp 98.2 F 12/05/24 13:01 Pulse 61 12/05/24 13:01 BP 138/80 12/05/24 13:01 Pulse Ox 99 12/05/24 13:01 Oxygen Delivery Method Room Air 12/05/24 13:01 BMI result Body Mass Index 34.8 Tobacco/Smoking Status: Tobacco use Status Tobacco use date assessed 12/05/24 12/05/24 09:15 Patient Tobacco Use Status Never used Tobacco 12/05/24 09:15 e-Cigarette/Vaping Use Never Used 12/05/24 09:15 PHQ-9: PHQ-9 Score PHQ-9: Total score 0 12/05/24 13:05 Thrive Assessment: Date of Thrive Assessment Date Thrive assessed 12/05/24 12/05/24 09:15 Coding Level of Care Code Est Pt Level 4 (67474) Complex EM visit Add On G2211 Diagnoses Benign prostate hyperplasia N40.0 Low Back Pain M54.50 Assessment & Plan Assessment & Plan (1) Benign prostate hyperplasia: Code(s): N40.0 - Benign prostatic hyperplasia without lower urinary tract symptoms Category: Medical Plan: Advised to stop the doxazosin. Continue tamsulosin and finasteride. (2) Low Back Pain: Code(s): M54.50 - Low back pain, unspecified Plan: Imaging studies not needed right now. Physical therapy, NSAIDS and muscle relaxants. Encouraged patient for daily exercise. Plan History of Present Illness - The patient is a 64-year-old male presenting with management of degenerative joint disease and benign prostatic hyperplasia. - Degenerative joint disease: Reports chronic back pain with variable intensity, worsened by activities like remodeling. - Symptomatic relief achieved through physical therapy, muscle relaxants, and meloxicam. - MRI from three years ago confirmed degenerative changes. - Benign prostatic hyperplasia: Previously on doxazosin and tamsulosin; advised to stop doxazosin and continue tamsulosin. 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 Review of Systems - Musculoskeletal: Reports chronic back pain with variable intensity, improved with exercises and medication. Denies pain during walking. - Neurological: Reports decreased numbness in legs since starting exercises. Physical Exam General: Cooperative and healthy appearing Nutritional Appearance: Well nourished Orientation/consciousness: Patient oriented x3 Limitations: No limitations Head: Normal to inspection General: Appearance normal, both eyes and all related structures Neck: Normal visual inspection Chest: Normal palpation of entire chest wall Respiratory: N ormal respiratory effort Neurology: Patient oriented x3, reports less numbness in the legs since doing exercises. Results - MRI: Degenerative changes noted three years ago. Plan 1. Degenerative Joint Disease - Continue physical therapy exercises and use muscle relaxants and meloxicam as needed for pain management. - MRI not indicated unless surgical intervention is considered. - Return for evaluation if pain worsens or affects quality of life. 2. Benign Prostatic Hyperplasia - Discontinue doxazosin and continue tamsulosin for prostate management. Discussion Notes I discussed with the patient that an MRI is not necessary unless surgical intervention is considered for his degenerative joint disease. We agreed on continuing physical therapy and medication management. For benign prostatic hyperplasia, I advised discontinuing doxazosin and continuing tamsulosin. Follow-up was recommended if symptoms worsen. Patient Instructions - Continue physical therapy exercises regularly. - Use muscle relaxants and meloxicam as needed for pain. - Discontinue doxazosin and continue tamsulosin as prescribed. - Return for evaluation if pain worsens or affects quality of life. Medications: Refilled meloxicam 15 mg PO DAILY 30 tabs 1RF cyclobenzaprine 10 mg PO BEDTIME 30 tabs 1RF Discontinued doxazosin Discontinued Reason: Doctor's Order 8 mg (2 x 4 mg) PO BEDTIME 90 tabs 1RF
[2024-12-05 13:01] VITALS: BP 138/80; PULSE 61; TEMP 36.8; O2SAT 99; BMI 34.8
== END 2024-12-05 13:18 | disposition home or self-care (01) ==
LOC: HO.HMCHD 12:47
PROVIDERS: PCP Internal Medicine; Visit Provider Internal Medicine
DX: N40.0 Benign prostatic hyperplasia without lower urinary tract symptoms (principal); M54.50 Low back pain, unspecified

== ENCOUNTER → 2024-12-05 12:46 | Outpatient (BNVA) | payer MEDICARE, SELFPAY | PROVIDERS: PCP Internal Medicine; Visit Provider Internal Medicine | DX: N40.0 Benign prostatic hyperplasia without lower urinary tract symptoms (principal); M54.50 Low back pain, unspecified; M47.816 Spondylosis without myelopathy or radiculopathy, lumbar region; Z79.899 Other long term (current) drug therapy; Z13.30 Encounter for screening examination for mental health and behavioral disorders, unspecified | CPT/HCPCS: 96127; 99212 ==

== ENCOUNTER 2024-12-24 08:37 | Outpatient (AMB) | payer MEDICARE, SELFPAY ==
--- OUTSIDE RECORDS SUMMARY | 2023-08-24 08:45 | XMS_ITS ---
Author Organization [facility] Address [address] [place] [address] Care Team Providers Care Supplier Engineer Name Role Phone Jonathan Crandall MD Primary Care Provider Isis Gross [phone] Cooney Encounters Encounter Location Date Provider Diagnosis [facility] [address] [place] [address] 08/24/2023 Isis Santos Plan Of Treatment No Information Progress Notes * Andrea OLIVEIRAOB:[birth year] (64 yo M)Acc No.[id number]:08/24/2023 Progress Note Patient: Tani ENRIQUEZ Provider: Shaji Santos DPM :1960 A ge:63 Y S ex:Male Date:08/24/2023 Address:[address] [place], [place] [address], [place] Pcp:Jonathan Crandall MD Subjective: * Chief Complaints: [...] DPM Date: 0 08/24/2023 Generated for Printi ng/Faxing/eTransmitting on: 0 12/24/2024 09:00 AM EDT
--- OUTSIDE RECORDS SUMMARY | 2024-11-23 03:30 | XMS_ITS ---
Author Organization [facility] Address [address] [place] [address] Care Team Providers Care Informaticist Name Role Phone BLAINE VELÁSQUEZ Primary Care Provider Mario Whitlock Jr REASON FOR VISIT screening Encounters Encounter Location Date Provider Diagnosis [facility] Outpatient [address] [place], [place] [phone] 11/23/2024 Mario Brooks Jr Colon cancer screening Z12.11 and History of adenomatous polyp of colon Z86.0101 Assessments Encounter Date Diagnosis (ICD Code) Assessment Notes Treatment Notes Treatment Clinical Notes Section Notes 11/23/2024 Colon cancer screening (ICD-10 - Z12.11) 11/23/2024 History of adenomatous polyp of colon (ICD-10 - Z86.0101) Plan Of Treatment No Information Progress Notes * MASSIEL AYERSDOB: (64 yo M)Acc No.[id number]:11/23/2024 COLON WITH MAC Patient: Anita MASSIEL GRANDA Provider: Citlaly Brooks MD :1960 A ge:64 Y S ex:Male Date:11/23/2024 Address:[address] [place], [place] [address] Pcp:BLAINE VELÁSQUEZ Subjective: * Chief Complaints: * 1 . Screening. * Medical History: Objective: * Vitals: Assessment: * Assessment: 1. C olon cancer screening - Z12.11 (Primary) 2 . H istory of adenomatous polyp of colon - Z86.0101 Plan: * Treatment: * Procedure Codes: 4 5380 COLONOSCOPY AND BIOPSY, 0529F INTRVL 3+YRS PTS CLNSCP DOCD * * The named appointment provid er may or may not be the originator of this progress note, and it is not deemed complete until electronically signed by the appointment provider. Sign off status: Pending * Provider: Citlaly Brooks MD Date: 0 11/23/2024 Generated for Freddy huffman/Tone/Shahlasmitting on: 0 12/24/2024 09:00 AM EDT
[2024-12-24 08:41] VITALS: BP 132/80; PULSE 97; O2SAT 95; BMI 34.8
--- NOTE | 2024-12-24 08:41 | A.OFFVIS_ITS ---
Vital Signs 12/24/24 08:41 Height 6 ft 2 in Weight 271 lb 2.697 oz BMI 34.8 BP 132/80 Blood Pressure Location Rt brachial Position Sitting Pulse 97 Pulse Source Pulse Oximeter Pulse Oximetry (%) 95 Oxygen Delivery Method Room Air Intake Visit Reasons: Obstructive sleep apnea Allergies No Known Allergies (No Known Allergies*) Allergy (Verified 12/24/24 08:45) HPI HPI Obstructive sleep apnea: Details: Tani is a pleasant 64-year-old male, never smoker with underlying obstructive sleep apnea and hypertension. Prior sleep study revealed moderately severe sleep apnea with no significant nocturnal hypoxemia. Average AHI 22, however when supine 59. Recommendations were made for CPAP therapy in APAP mode with pressure settings of 6-20 cm H2O, order sent to [facility]. He is using a fullface mask and averaging about 4-5 hours of sleep per night. Patient presents today to review compliance report. At this time denies any respiratory symptoms. [facility] Medical History (Updated 12/05/24 @ 13:25 by Montrell Mcnamara MD) Benign prostate hyperplasia Nephrolithiasis Osteoarthritis Obstructive sleep apnea Hypertension Surgical History Hx of tonsillectomy Hx of umbilical hernia repair Hx of cervical discectomy History of colonoscopy (08/03/19) H/O right knee surgery History of left knee surgery History of total left knee replacement (~2015) Family History Mother Neuropathy Father Stomach cancer Social History Housing: House Patient Tobacco Use Status: Never used Tobacco e-Cigarette/Vaping Use: Never Used service: No Current occupational status: retired Current occupation: [employer] - RIght Handed Cognitive needs: No Hearing needs: Yes (bilateral ) Vision needs: Yes (reading glasses) Review of Systems Const Denies chills, Denies excessive sweating, Denies fever(s), Denies headache(s) and Denies night sweats Eyes Denies dry eyes, Denies irritation and Denies itchy eyes ENT Reports Normal hearing present, Denies headache(s), Denies nasal congestion, Denies nasal discharge, Denies post nasal drip and Denies sore throat Card Denies chest pain, Denies chest pain at rest, Denies chest pain with activity, Denies claudication, Denies leg edema, Denies dyspnea, Denies dyspnea on exertion, Denies orthopnea and Denies paroxysmal nocturnal dyspnea Resp Denies chest congestion, Denies cough, Denies excessive phlegm production, Denies pain on inspiration, Denies pain with cough, Denies dyspnea, Denies dyspnea on exertion, Denies stridor and Denies wheezing Musc Denies myalgias Neuro Reports Normal hearing present and Denies headache(s) Endo Denies excessive sweating [place]coe/Lymph Denies lymphadenopathy Aller/Immun Denies itchy eyes, Denies seasonal rhinorrhea and Denies wheezing Physical Exam Vital Signs: BMI result Body Mass Index 34.8 Const General: cooperative, healthy appearing, comfortable, no acute distress, well developed and alert Nutritional Appearance: obese Orientation/consciousness: patient oriented x3 Limitations: no limitations HEENT Head: Yes normal to inspection, Yes normocephalic and Yes atraumatic Ears: hearing grossly normal bilaterally and external ears normal Eyes General: appearance normal, both eyes and all related structures Eyelids: Yes eyelids normal Sclerae: sclerae normal EOM: EOMs intact bilaterally Neck Neck: Yes normal visual inspection and Yes no lymphadenopathy Lymphatic: no lymphadenopathy noted Chest Chest palpation & inspection: normal inspection of the chest Resp Effort & Inspection: normal respiratory effort, able to speak in complete sentences, no audible wheezes, no cough, no stridor, not tachypneic, no tripod positioning and no use of accessory muscles Auscultation: clear to auscultation bilaterally Cardio Jugular venous distension: no JVD Rate: regular rate Rhythm: regular rhythm Skin Other: warm, dry General skin exam: no rashes or lesions noted Neuro General: patient oriented x3 Cranial nerves: Yes Normal hearing present Cognition (Neuro): normal cognition Gait exam (Neuro): Normal gait present Extrem General: Yes normal to inspection, Yes capillary refill normal, Yes no clubbing, cyanosis or edema and Yes no pedal edema Psych Appearance: grossly normal and well kempt Speech and movement: Normal speech and movement present and Clear speech present Affect: normal affect Attitude: cooperative Thought process: Normal thought process present Thought content: Normal thought content present Insight: Good insight present (Psych) Judgement: Good judgement present (Psych) Assessment & Plan Assessment & Plan (1) Obstructive sleep apnea: Code(s): G47.33 - Obstructive sleep apnea (adult) (pediatric) Category: Medical Plan Reviewed compliance report for the last 60 days which revealed greater than 4 hours of use for 78% of the time, average AHI 0.2 with minimal leaking. Patient feels he is benefitting from CPAP therapy and is motivated to continue to use. All questions were answered and patient is in agreement of plan. Will follow up in 3-6 months or sooner if needed. Coding Level of Care Code Est Pt Level 3 (65026) Diagnoses Obstructive sleep apnea G47.33
== END 2024-12-24 09:00 | disposition home or self-care (01) ==
LOC: HO.HPS 08:38
PROVIDERS: PCP Internal Medicine; Visit Provider Nurse Practitioner Family
DX: G47.33 Obstructive sleep apnea (adult) (pediatric) (principal)
CPT/HCPCS: 99213

== ENCOUNTER → 2024-12-24 08:37 | Outpatient (BNVA) | payer MEDICARE, SELFPAY | PROVIDERS: PCP Internal Medicine; Visit Provider Nurse Practitioner Family | DX: G47.33 Obstructive sleep apnea (adult) (pediatric) (principal) | CPT/HCPCS: 99212 ==

== ENCOUNTER 2025-02-11 13:29 | Outpatient (AMB) | payer MEDICARE, SELFPAY ==
--- OUTSIDE RECORDS SUMMARY | 2023-08-24 08:45 | XMS_ITS ---
Author Organization [facility] Address [address] [place] [address] Care Team Providers Care French Drawer Name Role Phone Jonathan Crandall MD Primary Care Provider Isis Gross [phone] Cooney Encounters Encounter Location Date Provider Diagnosis [facility] [address] [place] [address] 08/24/2023 Isis Santos Plan Of Treatment No Information Progress Notes * Andrea OLIVEIRAOB:[birth year] (64 yo M)Acc No.[id number]:08/24/2023 Progress Note Patient: Tani ENRIQUEZ Provider: Shaji Santos DPM :1960 A ge:63 Y S ex:Male Date:08/24/2023 Address:[address] [place], [place] [id number] Pcp:Jonathan Crandall MD Subjective: * Chief Complaints: [...] 08/24/2023 Generated for Printi ng/Faxing/eTransmitting on: 0 02/11/2025 06:45 PM EDT
--- OUTSIDE RECORDS SUMMARY | 2024-11-23 03:30 | XMS_ITS ---
Author Organization [facility] Address [address] [place] [address] Care Team Providers Care Hairspring Studder Name Role Phone BLAINE VELÁSQUEZ Primary Care Provider Mario Whitlock Jr [phone] REASON FOR VISIT screening Encounters Encounter Location Date Provider Diagnosis [facility] Outpatient [address] [place], [place] [phone] 11/23/2024 Mario Brooks Jr Colon cancer screening Z12.11 and History of adenomatous polyp of colon Z86.0101 Assessments Encounter Date Diagnosis (ICD Code) Assessment Notes Treatment Notes Treatment Clinical Notes Section Notes 11/23/2024 Colon cancer screening (ICD-10 - Z12.11) 11/23/2024 History of adenomatous polyp of colon (ICD-10 - Z86.0101) Plan Of Treatment No Information Progress Notes * MASSIEL AYERSDOB: (64 yo M)Acc No.[id number]:11/23/2024 COLON WITH MAC Patient: Anita MASSIEL GRANDA Provider: Citlaly Brooks MD :1960 A ge:64 Y S ex:Male Date:11/23/2024 Address:[address] [place], [place] [phone] Pcp:BLAINE VELÁSQUEZ Subjective: * Chief Complaints: * [...] 11/23/2024 Generated for Freddy huffman/Tone/Leesaitting on: 0 02/11/2025 06:44 PM EDT
--- NOTE | 2025-02-11 13:32 | A.OFFPC_ITS ---
Vital Signs 02/11/25 13:52 Height 6 ft 2 in Weight 273 lb BMI 35.0 BP 132/80 Blood Pressure Location Lt brachial Position Sitting Respiration 18 Pulse 76 Pulse Source Pulse Oximeter Pulse Oximetry (%) 97 Oxygen Delivery Method Room Air Intake Visit Reasons: routine- Croke Creative Producer Required: No Accompanied by: Spouse Allergies No Known Allergies (No Known Allergies*) Allergy (Verified 02/11/25 13:32) Medication List - Last Reconciled 02/11/25 by Nahum Tenorio MD amlodipine 5 mg PO BID 90 days cyclobenzaprine 10 mg PO BEDTIME finasteride 5 mg PO DAILY hydrochlorothiazide 12.5 mg PO DAILY losartan 100 mg PO DAILY meloxicam 15 mg PO DAILY sildenafil 100 mg PO DAILY PRN tamsulosin 0.4 mg PO BEDTIME Tobacco use date assessed: 12/05/24 Fall risk assessment: No Falls in past year Last assessed Fall Risk: 02/11/25 Dental Screening Dental Screen Date: 12/05/24 Did you have a dental visit in the last 12 months?: Yes Was dental information given to patient?: Patient has dentist HPI HPI Comments History of Present Illness Details The patient is a 64-year-old male presenting for a wellness visit with concerns about managing hypertension, prostate health, and liver enzyme elevations. He has a known history of essential hypertension, treated with amlodipine 5 mg twice daily, hydrochlorothiazide 12.5 mg daily, and losartan 100 mg daily. The patient's blood pressure readings have been consistently well- controlled. The patient reports a history of benign prostatic hyperplasia, for which he takes finasteride 5 mg and tamsulosin 0.5 mg. Previously, he was on doxazosin but was advised by his urologist to discontinue it due to redundancy with tamsulosin. His prostate health is regularly monitored with CT scans and PSA testing. PSA levels have been stable, with a recent measure of 2.82 ng/mL. He manages urinary symptoms effectively with current medication, and visits his urologist biannually. Concerning hepatic health, the patient has experienced elevated liver enzymes, notably ALT and AST. Historically, an incidental finding of fatty liver was noted in imaging conducted for past kidney stones and prostate evaluations. The enzymes have been fluctuating, and current elevations prompt further lab work and a potential liver ultrasound to monitor fatty liver progression. Medical History: - Essential Hypertension, well-controlle d - Benign Prostatic Hyperplasia - Elevated Liver Enzymes - Fatty Liver Disease - Past history of Kidney Stones - History of Prostate Cancer, currently in remission Medications: - Amlodipine 5 mg twice daily for hypert ension - Hydrochlorothiazide 12.5 mg daily for hypertension - Losartan 100 mg daily for hypertension - Finasteride 5 mg for benign prostatic hyperplasia - Tamsulosin 0.5 mg for benign prostatic hyperplasia - Sildenafil, as needed Diagnostic Results: - Labs: PSA level 2.82 ng/mL (recent res ult) - Labs: ALT and AST levels elevated with higher ALT levels - Imaging: Historical CT and MRI reports indicate findings consistent with fatty liver 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: - 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 - Engages in household activities and ma lemuel [facility] Medical History (Updated 02/11/25 @ 14:11 by Nahum Tenorio MD) Elevated liver enzymes Benign prostate hyperplasia Nephrolithiasis Osteoarthritis Obstructive sleep apnea Hypertension Surgical History (Updated 02/07/25 @ 16:56 by Cathy Bai) Hx of tonsillectomy Hx of umbilical hernia repair Hx of cervical discectomy History of colonoscopy (11/23/24) H/O right knee surgery History of left knee surgery History of total left knee replacement (~2015) Family History Mother Neuropathy Father Stomach cancer Social History Housing: House Patient Tobacco Use Status: Never used Tobacco e-Cigarette/Vaping Use: Never Used service: No Current occupational status: retired Current occupation: [employer] - RIght Handed Cognitive needs: No Hearing needs: Yes (bilateral ) Vision needs: Yes (reading glasses) Questionnaire Thrive Questionnaire Date Thrive assessed: 12/05/24 AUDIT C Alcohol Use Questionnaire (AUDIT-C) 1. How often do you have a drink containing alcohol?: Never 3. How often do you have six or more drinks on one occasion?: Never Total Score: 0 MAYI-7 AMB Questionnaire MAYI-7 Date MAYI - 7 assessed: 12/05/24 Source: Developed by Drs. Jason Palm, Sarah May, Neo Shore and colleagues, with an educational arlen from [employer]. Review of Systems Const Details: - Constitutional: Denies nausea, vomiting, or systemic symptoms - Cardiovascular: Denies chest pain - Respiratory: Denies shortness of breath - Gastrointestinal: Denies diarrhea and constipation - Genitourinary: Reports effective management of urinary symptoms - Neurological: Denies neurological symptoms All systems reviewed & are unremarkable except as reviewed in HPI and above Physical exam (Primary Care) Vital Signs: Last Vital Signs Pulse 76 02/11/25 13:52 Resp 18 02/11/25 13:52 BP 132/80 02/11/25 13:52 Pulse Ox 97 02/11/25 13:52 Oxygen Delivery Method Room Air 02/11/25 13:52 BMI result Body Mass Index 35.0 Tobacco/Smoking Status: Tobacco use Status Tobacco use date assessed 12/05/24 02/11/25 13:33 Patient Tobacco Use Status Never used Tobacco 02/11/25 13:33 e-Cigarette/Vaping Use Never Used 02/11/25 13:33 Thrive Assessment: Date of Thrive Assessment Date Thrive assessed 12/05/24 02/11/25 13:33 Const Other: General: Alert and oriented, Well nourished, No acute distress. Eye: Pupils are equal, round and reactive to light, Intact accommodation, Ex traocular movements are intact, Normal conjunctiva, Vision unchanged. HENT: Normocephalic, Atraumatic, Tympanic membranes are clear, Normal hearing, Oral mucosa is moist, No pharyngeal erythema, Ear canals patent. Respiratory: Lungs CTA bilaterally, No wheeze, Respirations are non-labored. Cardiovascular: Regular rate, Regular rhythm, S1 auscultated, S2 auscultated, No murmur, Good pulses equal in all extremities, Normal peripheral perfusion, No edema. Gastrointestinal: Soft, Non-tender, Non-distended, Normal bowel sounds, No organomegaly. Musculoskeletal: Normal range of motion, Normal strength, No tenderness, No swelling, No deformity, Normal gait. Integumentary: Warm, Dry, [place], Intact. Neurologic: Alert, Oriented, Normal sensory, Normal motor function, No focal defects, Cranial Nerves II-XII are grossly intact, Normal deep tendon reflexes. Psychiatric: Cooperative, Appropriate mood & affect, Normal judgment. Coding Level of Care Code Est Pt Level 4 (29408) Complex EM visit Add On G2211 Diagnoses Hypertension, unspecified type I10 Hypertension type: unspecified Benign prostatic hyperplasia, unspecified whether lower urinary tract symptoms present N40.0 Lower urinary tract symptom presence: unspecified whether lower urinary tract symptoms present Elevated liver enzymes R74.8 Assessment & Plan Assessment & Plan (1) Hypertension: Comment: - Continue current regimen with amlodipine, hydrochlorothiazide, and losartan. - Regular blood pressure monitoring. Code(s): I10 - Essential (primary) hypertension Category: Medical Qualifiers: Hypertension type: unspecified Qualified Code(s): I10 - Essential (primary) hypertension (2) Benign prostate hyperplasia: Comment: - Continue finasteride and tamsulosin. - Scheduled follow-up with urology and continue regular PSA testing. Code(s): N40.0 - Benign prostatic hyperplasia without lower urinary tract symptoms Category: Medical Qualifiers: Lower urinary tract symptom presence: unspecified whether lower urinary tract symptoms present Qualified Code(s): N40.0 - Benign prostatic hyperplasia without lower urinary tract symptoms (3) Elevated liver enzymes: Comment: - Ordered repeat liver function tests and a hepatitis panel. - If elevated, proceed with liver ultrasound as necessary. Code(s): R74.8 - Abnormal levels of other serum enzymes Category: Medical Plan: Health Maintenance: - Monitor blood pressure regularly and maintain antihypertensive therapy. - Follow-up PSA testing annually or more frequently as directed by urologist. - Repeat liver enzymes and hepatitis panel; consider ultrasound based on results. - Discuss lifestyle modifications to support liver health if necessary. Plan During this visit, I discussed the management of the patient's current health conditions, emphasizing the importance of regular monitoring and adherence to the prescribed medication regimen for hypertension. The patient understands the need to continue medications for prostate health, and we reviewed the recent PSA results, which are stable. Further investigation into the elevated liver enzymes is underway, starting with repeat blood tests and a hepatitis panel. The patient is aware of the potential need for ultrasound imaging if enzyme levels remain high. We emphasized maintaining a balanced lifestyle and scheduled further lab work and appropriate follow-up. Orders: Orders Comprehensive Met. Panel Today R74.8 - Abnormal levels of other serum enzymes Hepatitis A,B,C Profile Today R74.8 - Abnormal levels of other serum enzymes Medications: Discontinued cyclobenzaprine Discontinued Reason: Doctor's Order 10 mg PO BEDTIME 30 tabs 0RF meloxicam Discontinued Reason: Doctor's Order 15 mg PO DAILY 30 tabs 1RF Patient Instructions: - Continue taking blood pressure medications as prescribed. - Keep all scheduled appointments with your urologist. - Follow up with lab work as soon as possible. - Maintain a healthy lifestyle with a balanced diet and regular physical a ctivity. - Contact us if you experience any new symptoms or health concerns.
[2025-02-11 13:52] VITALS: BP 132/80; PULSE 76; RESP 18; O2SAT 97; BMI 35.0
--- OUTSIDE RECORDS SUMMARY | 2025-02-11 18:45 | XMS_ITS | Patient Health Record ---
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 Name Role Phone BLAINE VELÁSQUEZ Primary Care Provider Nguyễn Brooks Jr Mario Unavailable [phone] Reason For Referral No Information Medications Medication [...] Problem Status W/U Status Risk Notes Problem 852730881 Encounter for other preprocedural examination (Z01.818) Active confirmed Problem 957508107 Screen for colon cancer (Z12.11) Active confirmed Problem [id number] senior living current use of diuretic (Z79.899) Active confirmed Vital Signs Temperature 99.3 degrees Fahrenheit 09/10/2024 Blood pressure diastolic 01 mm Hg 09/10/2024 Height 74 in 09/10/2024 Blood pressure systolic 001 mm Hg 09/10/2024 Weight 273 lbs 09/10/2024 BMI 35.05 kg/m2 09/10/2024 Encounters Encounter Location Date Provider Diagnosis [facility] [place] [address] [place], [place] [id number] 11/23/2024 Mario Brooks Jr Colon cancer screening Z12.11 and History of adenomatous polyp of colon Z86.0101 [facility] [address] [place] [address] 09/10/2024 Mario Brooks Jr Screen for colon cancer Z12.11 and senior living current use of diuretic Z79.899 Assessments Encounter Date Diagnosis (ICD Code) Assessment Notes Treatment Notes Treatment Clinical Notes Section Notes 11/23/2024 Colon cancer screening (ICD-10 - Z12.11) 11/23/2024 History of adenomatous polyp of colon (ICD-10 - Z86.0101) 09/10/2024 Screen for colon cancer (ICD-10 - Z12.11) We discussed colonoscopy today. We discussed risks and benefits of the procedure today. He understands these and agrees to proceed. This will be scheduled at his convenience. 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 We discussed risks and benefits of the procedure today. He understands these and agrees to proceed. This will be scheduled at his convenience. Plan Of Treatment Future Test Test Name Order Date COLONOSCOPY 10/19/2018 COLONOSCOPY 09/10/2024 Insurance Providers Payer Name Payer Address Payer Phone Subscriber Number Group Number Insured Name Patient Relationship to Insured Coverage Start Date Coverage End Date [facility] [address] [place] [address] [id number] MASSIEL BIRMINGHAM Self - patient is the insured Medical (General) History Medical History History ICD Code Nephrolithiasis LIZ/CPAP Hypertension Surgical History Surgery Date(Month/Year) tonsillectomy age 10 umbilical hernia repair ruptured disc in neck right knee arthritis/ meniscus repair left knee surgery total replacement 2015
--- OUTSIDE RECORDS SUMMARY | 2025-02-11 18:45 | XMS_ITS | Patient Health Record ---
Author Organization [facility] Address [address] [place] [address] Care Team Providers Care Private Investigator Surveillance Name Role Phone Jonathan Crandall MD Primary Care Provider Eveline jett Danielle Isis Unavailable [phone] Allergies No Known Allergies Reason For Referral No Information Medications Medication SIG (Take, Route, Frequency, Duration) Notes Start Date End Date Status hydroCHLOROthiazide 12.5 MG 1 tablet in the morning Orally Once a day; Duration: 30 day(s) Active amLODIPine Besylate 5 MG 1 tablet Orally Once a day; Duration: 30 day(s) Active Doxazosin Mesylate 2 MG 1 tablet Orally Once a day; Duration: 30 day(s) Active Losartan Potassium 100 MG 1 tablet Orall y Once a day; Duration: 30 day(s) Active Ciclopirox Olamine 0.77 % APPLY TOPICALL Y TO AFFECTED AREAS ON FEET TWO TIMES A DAY; Duration: 30 Active Flomax 0.4 MG 1 capsule Orally Onc e a day; Duration: 30 day(s) Active Immunizations Vaccine Route Administration [...] Date [employer] 65 Medicare Preferred [address] [place] [address] [phone] [id number] Tani Hou Self - patient is the insured Medical (General) History Medical History History ICD Code Arthritis Back,Hip,and Knee pain Broken bones High blood pressure Measles Mumps Chicken pox Bone implants/screws Kidney stones Surgical History Surgery Date(Month/Year) left knee replacement 2015 umbilical hernia 2000 herniated disk in neck 2001 tonsillectomy achilles tendon surgery 1986 wisdom tooth extraction 2019
== END 2025-02-11 14:11 | disposition home or self-care (01) ==
PROVIDERS: PCP Student in an Organized Health Care Education/Training Program; Visit Provider Student in an Organized Health Care Education/Training Program
DX: I10 Essential (primary) hypertension (principal); N40.0 Benign prostatic hyperplasia without lower urinary tract symptoms; R74.8 Abnormal levels of other serum enzymes

== ENCOUNTER 2025-02-11 13:29 | Outpatient (REF) | payer MEDICARE, SELFPAY ==
[2025-02-11 15:53] LABS: Alanine Aminotransferase 105 U/L (0-40); Albumin Level 4.6 g/dL (3.5-5.0); Alkaline Phosphatase 73 U/L (39-117); Anion Gap 13 (12-20); Aspartate Amino Transferase 56 U/L (5-37); Blood Urea Nitrogen 20 mg/dL (9-16); Calcium 9.8 mg/dL (8.4-10.2); Carbon Dioxide 28 mmol/L (22-29); Chloride 107 mmol/L (96-108); Estimated Glomerular Filt Rate > 60; Potassium 3.9 mmol/L (3.3-5.1); Sodium 144 mmol/L (135-145); Total Protein 7.5 g/dL (6.5-8.0)
[2025-02-12 08:56] LABS: HBS Num1 58.06 mIU/mL (0-7.99); HBc Num1 1.22 S/CO (0.00-0.79); HBsAGNum1 0.40 S/CO (0.00-0.99); Hepatitis A Antibody IgM 0.14 Index (0-0.79); Hepatitis B Surface Antigen Negative (Negative); ~HepC Num1 0.07 S/CO (0.00-0.79); ~Hepatitis A Antibody IgM Nonreactive (Nonreactive); ~Hepatitis B Surface Antibody REACTIVE (Nonreactive); ~Hepatitis C Antibody Nonreactive (Nonreactive)
[2025-02-12 10:54] LABS: HBc Num2 1.10 S/CO; HBc Num3 1.16 S/CO
[2025-02-13 07:28] LABS: Hepatitis B Core Antibody IgM NON-REACTIVE (NON-REACTIVE)
== END 2025-02-11 13:30 | disposition home or self-care (01) ==
LOC: HO.LAB 13:29
PROVIDERS: PCP Student in an Organized Health Care Education/Training Program; Visit Provider Student in an Organized Health Care Education/Training Program
DX: I10 Essential (primary) hypertension (principal); N40.0 Benign prostatic hyperplasia without lower urinary tract symptoms; R74.8 Abnormal levels of other serum enzymes
CPT/HCPCS: 36415; 80053; 86704; 86705; 86706; 86709; 86803; 87340; 99212

== ENCOUNTER 2025-04-26 08:41 | Outpatient (REF) | payer MEDICARE, SELFPAY ==
--- OUTSIDE RECORDS SUMMARY | 2024-11-23 02:30 | XMS_ITS ---
Author Organization [facility] Address [address] [place] [address] Care Team Providers Care Merchandiser Retail Representative Name Role Phone BLAINE VELÁSQUEZ Primary Care Provider Mario Whitlock Jr [phone] REASON FOR VISIT screening Encounters Encounter Location Date Provider Diagnosis [facility] Outpatient [address] [place], [place] [phone] 11/23/2024 Mario Brooks Jr Colon cancer screening Z12.11 and History of adenomatous polyp of colon Z86.0101 Assessments Encounter Date Diagnosis (ICD Code) Assessment Notes Treatment Notes Treatment Clinical Notes Section Notes 11/23/2024 Colon cancer screening (ICD-10 - Z12.11) 11/23/2024 History of adenomatous polyp of colon (ICD-10 - Z86.0101) Plan Of Treatment No Information Progress Notes * MASSIEL AYERSDOB: (65 yo M)Acc No.[id number]:11/23/2024 COLON WITH MAC Patient: Anita MASSIEL GRANDA Provider: Citlaly Brooks MD :1960 A ge:64 Y S ex:Male Date:11/23/2024 Address:[address] [place], [place] [id number] Pcp:BLAINE VELÁSQUEZ Subjective: * Chief Complaints: * S creening Assessment: * Assessment: 1. C olon cancer screening - Z12.11 (Primary) 2 . H istory of adenomatous polyp of colon - Z86.0101 Plan: * Procedure Codes: 4 5380 COLONOSCOPY AND [id number] INTRVL 3+YRS PTS CLNSCP DOCD Billing Information: * Procedure Codes: 22533 COLONOSCOPY AND BIOPSY. 0529F INTRVL 3+YRS PTS CLNSCP DOCD. * The named appointment provid er may or may not be the originator of this progress note, and it is not deemed complete until electronically signed by the appointment provider. Sign off status: Pending * Provider: Citlaly Brooks MD Date: 0 11/23/2024 Generated for Freddy huffman/Tone/Leesaitting on: 1 06/26/2024 08:42 AM EST
--- NOTE | ~2025-04-26 | US_ITS ---
CLINICAL HISTORY: R74.8 - Abnormal levels of other serum enzymes US limited to right upper quadrant Comparison: None Findings: Liver is mildly enlarged and reveals diffuse increased echogenicity, compatible with steatosis. No focal hepatic lesions. No intrahepatic ductal dilatation. Right lobe length measures 17.8 cm. Portal vein reveals hepatopetal flow. Common bile duct measures 3 mm. Gallbladder appears unremarkable. No sonographic Mancera's sign. Right kidney is normal texture. No hydronephrosis. Right renal length is 12.0 cm. A nonshadowing echogenic lower pole focus measuring up to 7 mm is nonspecific, possible small nonobstructing calculus. Impression: 1. Mild hepatomegaly with evidence of hepatic steatosis. 2. Possible small nonobstructing right renal calculus. This document has been electronically signed by: Mookie Hawkins MD on 04/26/2025 16:03:10
--- OUTSIDE RECORDS SUMMARY | 2025-04-26 08:43 | XMS_ITS | Patient Health Record ---
Author Organization [facility] Address [address] [place] [address] Care Team Providers Care Hand Therapist Name Role Phone BLAINE VELÁSQUEZ Primary Care Provider Nguyễn Brooks Jr Mario Unavailable [phone] Reason For Referral No Information Medications Medication SIG (Take, Route, Frequency, Duration) Notes Start Date End Date Status Lipo-Flavonoid Plus Active hydroCHLOROthiazide 12.5 MG Capsule 1 capsule in the morning Orally Once a day Active Tamsulosin HCl 0.4 MG Capsule 1 capsule Orally Once a day Active Doxazosin Mesylate 4 MG Tablet 1 tablet Orally Once a day Active Allopurinol 100 MG Tablet TAKE ONE TABLE T BY MOUTH EVERY DAY Oral; Duration: 30 Active Ibuprofen 200 MG Tablet 1 tablet with fo od or milk as needed Orally prn Active Sildenafil Citrate 100 MG Tablet 1 tablet as needed Orally Once a day as needed Active amLODIPine Besylate 5 MG Tablet 1 tablet Orally Once a day; Duration: 30 day(s) Active Losartan Potassium 100 MG Tablet 1 tablet Orally Once a day Active Immunizations Vaccine Route Administration Date Status Comme nts Influenza Unknown 01/28/2018 Administered Influenza Unknown 02/15/2024 Administered Social History Tobacco Use: Social History Observation Description Date Details (start date - stop date) Never Smoker NA - NA Social History Drugs/Alcohol: Social Info Question Answer Notes Alcohol Screen Did you have a drink containing alcohol in the past year? 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 Problems Problem Type SNOMED Code ICD Code Onset Dates Problem Status W/U Status Risk Notes Problem Pre-procedure evaluation check (991964006) Encounter for other preprocedural examination (Z01.818) Active confirmed Problem Screening for malignant neoplasm of colon (546300017) Screen for colon cancer (Z12.11) Active confirmed Problem Long-term current use of drug therapy (966304792) damage inside adjuster current use of diuretic (Z79.899) Active confirmed Vital Signs Temperature 99.3 degrees Fahrenheit 09/10/2024 Blood pressure diastolic 01 mm Hg 09/10/2024 Height 74 in 09/10/2024 Blood pressure systolic 001 mm Hg 09/10/2024 Weight 273 lbs 09/10/2024 BMI 35.05 kg/m2 09/10/2024 Encounters Encounter Location Date Provider Diagnosis [facility] [place] [facility] [address] [place], [place] [id number] 11/23/2024 Mario Brooks Jr Colon cancer screening Z12.11 and History of adenomatous polyp of colon Z86.0101 [facility] [address] [place] [address] 09/10/2024 Mario Brooks Jr Screen for colon cancer Z12.11 and damage inside adjuster current use of diuretic Z79.899 Assessments Encounter [...] will be scheduled at his convenience. 09/10/2024 retirement current use of diuretic (ICD-10 - Z79.899) [...] Insured Coverage Start Date Coverage End Date [facility] [address] [place] [address] [id number] MASSIEL BIRMINGHAM Self - patient is the insured Medical (General) History Medical History History ICD Code Nephrolithiasis LIZ/CPAP Hypertension Surgical History Surgery Date(Month/Year) left knee surgery total replacement 2015 right knee arthritis/ meniscus repair ruptured disc in neck umbilical hernia repair tonsillectomy age 10
--- OUTSIDE RECORDS SUMMARY | 2025-04-26 08:43 | XMS_ITS | Patient Health Record ---
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 Role Phone Jonaleisa Nahum Primary Care Provider Isis Whitley Unavailable [phone] Brenna Marquez Unavailable [phone] Allergies No Known Allergies Reason For Referral No Information Medications Medication SIG (Take, Route, Frequency, Duration) Notes Start Date End Date Status Losartan Potassium 100 MG 1 tablet Orall y Once a day; Duration: 30 day(s) Active Doxazosin Mesylate 2 MG 1 tablet Orally Once a day; Duration: 30 day(s) Active Ciclopirox Olamine 0.77 % APPLY TOPICALL Y TO AFFECTED AREAS ON FEET TWO TIMES A DAY; Duration: 30 Active Flomax 0.4 MG 1 capsule Orally Onc e a day; Duration: 30 day(s) Active amLODIPine Besylate 5 MG 1 tablet Orally Once a day; Duration: 30 day(s) Active hydroCHLOROthiazide 12.5 MG 1 tablet in the morning Orally Once a day; Duration: 30 day(s) Active Ciclopirox Olamine 0.77 % 1 application to affected area Externally Twice a day to effected areas on feet; Duration: 30 days 04/04/2025 Active Immunizations Vaccine Route Administration Date Status Comme nts COVID-19 Pfizer BioNTech Vaccine Unknown 08/14/2020 Administered Second Dose: 09/04/2020 Social History Tobacco Use: Social History Observation Description Date Details (start date - stop date) Never Smoker NA - NA Tobacco use other than smoking: Question Answer Notes Are you an other tobacco user? No Tobacco Control (Standard) Question Answer Notes Tobacco use: Nonsmoker Additional Findings: Tobacco non-user Current no nsmoker AUDIT-C (Standard) Question Answer Notes Did you have a drink containing alcohol in the p ast year? No Points 0 Interpretation Negative Problems Problem Type SNOMED Code ICD Code Onset Dates Problem Status W/U Status Risk Notes Problem Non-pressure chronic ulcer of other part of left foot limited to breakdown of skin (L97.521) Active confirmed Problem Mononeuropathy of lower limb (545982897) Neuritis of right foot (G57.91) Active confirmed Vital Signs Blood pressure diastolic 70 mm Hg 04/04/2025 Height 6 ft 1 in in 04/04/2025 Blood pressure systolic 130 mm Hg 04/04/2025 Weight 270 lbs 04/04/2025 BMI 35.62 kg/m2 04/04/2025 Encounters Encounter Location Date Provider Diagnosis [facility] [address] [address] 04/04/2025 Brenna Marquez Tinea pedis of both feet B35.3 ; Tinea unguium B35.1 ; Pain in right toe(s) M79.674 ; Pain in left toe(s) M79.675 ; Pain in right foot M79.671 and Neuritis of right foot G57.91 [facility] [address] [address] 04/04/2025 Isis Santos Assessments Encounter Date Diagnosis (ICD Code) Assessment Notes Treatment Notes Treatment Clinical Notes Section Notes 04/04/2025 Tinea pedis of both feet (ICD-10 - B35.3) Patient Educated with: ATHELETE .pdf (ATHELETE .pdf) 04/04/2025 Tinea unguium (ICD-10 - B35.1) 04/04/2025 Pain in right toe(s) (ICD-10 - M79.674) 04/04/2025 Pain in left toe(s) (ICD-10 - M79.675) 04/04/2025 Pain in right foot (ICD-10 - M79.671) 04/04/2025 Neuritis of right foot (ICD-10 - G57.91) Plan Of Treatment Pending Test Test Name Order Date X ray : Foot, right 3V 08/24/2023 Next Appt Details Provider Name:Brenna smith, 10/23/2025 09:00:00 AM, [address] [place], [address], Insurance Providers Payer Name Payer Address Payer Phone Subscriber Number Group Number Insured Name Patient Relationship to Insured Coverage Start Date Coverage End Date [employer] 65 Medicare Preferred [address] [place] [address] [id number] Tani Hou Self - patient is the [...]
== END 2025-04-26 08:42 | disposition home or self-care (01) ==
LOC: HO.US 08:41
PROVIDERS: PCP Student in an Organized Health Care Education/Training Program; Visit Provider Student in an Organized Health Care Education/Training Program
DX: R74.8 Abnormal levels of other serum enzymes (principal)
CPT/HCPCS: 76705

== ENCOUNTER → 2025-04-26 08:42 | Outpatient (BNV) | payer MEDICARE, SELFPAY | PROVIDERS: PCP Student in an Organized Health Care Education/Training Program; Visit Provider Radiology Diagnostic Radiology | DX: K76.0 Fatty (change of) liver, not elsewhere classified (principal); R16.0 Hepatomegaly, not elsewhere classified | CPT/HCPCS: 76705 ==